=== PATIENT | male | born 1975 | race Caucasian/White ===

== ENCOUNTER 2022-12-25 11:19 | Emergency (ER) | payer BC ==
--- OUTSIDE RECORDS SUMMARY | 2022-12-25 11:29 | XMS REPORT | Continuity of Care Document ---
:[address] [facility] t Address [address] [facility] [address] [place] [address] Care Team Providers Name Role Phone Asked, No Pcp Primary Care Physician Unavailable DR HOLLAND LOPEZ Attending Clinician Unavailable [email or web address] Attending Clinician Unavailable Sandip Damico Attending Clinician Amanda Cramer Attending Clinician Unavailable Rachell Shaikh Attending Clinician Unavailable Sandip Desai Attending Clinician Unavailable Chris Milan Attending Clinician Unavailable Kj Mccurdy Attending Clinician Unavailable Richadr Marcial Attending Clinician Unavailable Holland Lopez Attending Clinician DR HOLLAND LOPEZ Admitting Clinician Unavailable [email or web address]_S Admitting Clinician Unavailable Gregg Summers Admitting Clinician Unavailable Sandip Desai Admitting Clinician Unavailable Chris Milan Admitting Clinician Unavailable Kristopher Marcial Admitting Clinician Unavailable Payers Payer Name Policy Type Policy Number Effective Date Expiration Date Alex Cueva0 [id number] 1958 00:00:00 [place] [id number] 2021 00:00:00 [place] Problems Condition Condition Condition Status Onset Resolution Last Treating Co mments Source Name Details Category Date Date Treatment Clinician Date RC RC Active Diagnosis Active [id number] Memoria 01/03/2017 0 11:09:00 l SMR 08:00: Otis Estrada [facility] RT RT Diagnosis Active 2016-10-02 Mem oria HARDWARE HARDWARE 6-15 16:06:00 l REMOVAL REMOVAL 08:00: Otis Active 00 09/01/2016 [facility] [place] [facility] SPR Diagnosis Active 2016-09-01 Mem oria HARDWARE HARDWARE 6- 11:42:00 l REMOVAL REMOVAL 08:00: Eusebio Active 00 08/30/2016 [facility]str[facility] HARDWARE HARDWARE Diagnosis Active 2016-10-02 Memoria REMOVAL REMOVAL 6-12 16:06:00 l Active 08:00: Eusebio 08/29/2016 00 [facility]strada [facility] Anxiety Anxiety Problem Active 2021-09-04 Me moria (finding) (finding) 04:07:13 l Active Eusebio Problem 09/04/2021 [facility] Benign Benign Problem Active 2021-09-04 Dickson da prostatic prostatic 04:07:13 l hypertroph hypertroph He rmann with with outflow outflow obstructio obstructio n n (disorder) (disorder) Active Problem 09/04/2021 [facility] Family Family Problem Active 2021-09-04 Dickson da history of history of 04:07:13 l prostate prostate Kermit n cancer cancer (context-d (context-d ependent ependent category) category) Active Problem 09/04/2021 [facility] Hyperchole Hyperchol Problem Active 2021-09-04 Memoria sterolemia esterolemi 04:07:13 l (disorder) a Kermit n (disorder) Active Problem 09/04/2021 [facility] Hypertensi Hypertens Problem Active 2021-09-04 Memoria ve katharine 04:07:13 l disorder, disorder, Herm rufina systemic systemic arterial arterial (disorder) (disorder) Active Problem 09/04/2021 [facility] Myocardial Myocardia Problem Active 2021-09-04 Memoria infarction l 04:07:13 l (disorder) infarction He rmann (disorder) Active Problem 09/04/2021 [facility] Nocturia Nocturia Problem Active 2021-09-04 Memoria (finding) (finding) 04:07:13 l Active Eusebio Problem 09/04/2021 [facility] Poor Poor Problem Active 2021-09-04 Memor ia stream of stream of 04:07:13 l urine urine Otis (finding) (finding) Active Problem 09/04/2021 [facility] Post-mictu Post-mict Problem Active 2021-09-04 Memoria rition urition 04:07:13 l incontinen incontinen He rmann ce ce (finding) (finding) Active Problem 09/04/2021 [facility] ADD ADD Problem Active 2018-05-16 Memor ia (attention (attention 03:45:43 l deficit deficit Otis disorder) disorder) without without hyperactiv hyperactiv ity ity Active Problem 05/16/2018 [facility] Primary Primary Problem Active 2018-05-16 Me moria insomnia insomnia 03:45:43 l Active Otis Problem 05/16/2018 [facility] Acute Acute Diagnosis Active 2017-06-15 Mem oria non-recurr non-recurr 02:48:16 l ent ent Eusebio maxillary maxillary sinusitis sinusitis Active Diagnosis 06/15/2017 [facility] M19.012 M19.012 Diagnosis Active 2015-09-27 Memoria Active MH 16:17:00 l [facility] Eusebio Estrada [facility] Allergies, Adverse Reactions, Alerts Allergy Allergy Status Severity Reaction(s) Onset Inactive Treating Comm ents Source Name Type Date Date Clinician naproxen DA Active SV HANDS 2021-0 [facility] BURNING/ITCH 1-13 Donna r Y 00:00: Starks 00 [facility] Penicill DA Active U UNKNOWN [facility] ins 3-19 Clear 00:00: Starks 00 [facility] ibuprofe DA Active U HANDS GET 2020-0 [facility] n ITCHY AND 3-19 Clear BURNING 00:00: Starks 00 [facility] Penicill DA Active U [facility] ins 3-19 Clear 00:00: Starks [facility] ibuprofe DA Active U [facility] n 3-19 Clear 00:00: Starks [facility] Penicill DA Active U 0 [facility] ins 1-16 Clear 00:00: Starks [facility] ibuprofe DA Active U 0 [facility] n 1-16 Clear 00:00: Starks [facility] Penicill DA Active U UNKNOWN [facility] ins 1-16 Clear 00:00: Starks [facility] ibuprofe DA Active U HANDS GET [facility] n ITCHY AND 1-16 Clear BURNING 00:00: Starks [facility] ibuprofe DA Active U [facility] n 9-21 Clear 00:00: Starks [facility] ibuprofe DA Active U HANDS GET [facility] n ITCHY AND 9-21 Clear BURNING 00:00: Starks [facility] Naproxen Naproxen Active shortness of Memoria breath 3-05 l 00:00: Otis 00 Penicill DA Active U [facility] ins 2-17 Clear 00:00: Starks [facility] Penicill DA Active U UNKNOWN [facility] ins 2-17 Clear 00:00: Starks [facility] naproxen naproxen Active Memori a l Otis penicill penicill Active Memori a in in l Otis Penicill DA Active Unknown unknown [facility] Naproxen DA Active Unknown itching and Oa [facility]end [facility] Social History Social Habit Start Date Stop Date Quantity Comments Source Sexual orientation Method [facility] Sex Assigned At [birth year] [facility] 00:00:00 00:00:00 Smoking Status Start Date Stop Date Source Tobacco smoking consumption unknown [facility] Social History 2021-08-11 14:44:12 [facility] Medications Ordered Filled Start Stop Current Ordering Indication Dosage Frequency Signature Comments Components Source Medication Medication Date Date Medication? Clinician (SIG) Name Name tamsulosin Yes 0.4 mg = 1 M emoria 0.4 mg oral 6-15 cap, PO, l capsule 17:09: Daily, # Kermit n 00 90 cap, 3 Refill(s), Pharmacy: [id number], 177.8, cm, 08/11/21 9:56:00 CDT, Height, 86.534, kg, 08/11/21 9:56:00 CDT, Weight tamsulosin 2-0 Yes 0.4 mg = 1 M emoria 0.4 mg oral 6-15 cap, PO, l capsule 17:09: Daily, # Kermit n 00 90 cap, 3 Refill(s), Pharmacy: [id number], 177.8, cm, 08/11/21 9:56:00 CDT, Height, 86.534, kg, 08/11/21 9:56:00 CDT, Weight tamsulosin 2021-0 Yes 0.4 mg = 1 M emoria 0.4 mg oral 6-15 cap, PO, l capsule 17:09: Daily, # Kermit n 00 90 cap, 3 Refill(s), Pharmacy: [id number], 177.8, cm, 08/11/21 9:56:00 CDT, Height, 86.534, kg, 08/11/21 9:56:00 CDT, Weight tamsulosin 2021-0 Yes 0.4 mg = 1 M emoria 0.4 mg oral 6-15 cap, PO, l capsule 17:09: Daily, # Kermit n 00 90 cap, 3 Refill(s), Pharmacy: [id number], 177.8, cm, 08/11/21 9:56:00 CDT, Height, 86.534, kg, 08/11/21 9:56:00 CDT, Weight multivitami 2021-0 Yes Daily, 0 Me moria n 5-25 Refill(s) l 14:40: Otis 00 [place]-3 2-0 Yes 1,000 mg, Memor ia Fish Oil 5-25 PO, Daily, l 14:40: 0 Otis 00 Refill(s) multivitami 2-0 Yes Daily, 0 Me moria n 5-25 Refill(s) l 14:40: Eusebio 00 [place]-3 2-0 Yes 1,000 mg, Memor ia Fish Oil 5-25 PO, Daily, l 14:40: 0 Eusebio 00 Refill(s) multivitami 0 Yes Daily, 0 Me moria n 5-25 Refill(s) l 14:40: Eusebio 00 [place]-3 0 Yes 1,000 mg, Memor ia Fish Oil 5-25 PO, Daily, l 14:40: 0 Otis 00 Refill(s) multivitami 0 Yes Daily, 0 Me moria n 5-25 Refill(s) l 14:40: Eusebio [place]-3 0 Yes 1,000 mg, Memor ia Fish Oil 5-25 PO, Daily, l 14:40: 0 Eusebio 00 Refill(s) Vitamin D3 0 Yes 0 Memoria 5-25 Refill(s) l 14:39: Otis 00 Plavix 0 Yes PO, 0 Memoria 5-25 Refill(s) l 14:39: Eusebio Plavix 75 0 Yes 75 mg = 1 Mem oria mg oral 5-25 tab, PO, l tablet 14:39: Daily, 0 Eusebio 00 Refill(s) oxyCODONE 0 Yes 10 mg = 1 Mem oria 10 mg oral 5-25 tab, PO, l tablet, 14:39: Q6H, 0 Otis immediate 00 Refill(s) release Vitamin D3 0 Yes 0 Memoria 5-25 Refill(s) l 14:39: Otis Plavix 0 Yes PO, 0 Memoria 5-25 Refill(s) l 14:39: Otis Plavix 75 0 Yes 75 mg = 1 Mem oria mg oral 5-25 tab, PO, l tablet 14:39: Daily, 0 Eusebio 00 Refill(s) oxyCODONE 0 Yes 10 mg = 1 Mem oria 10 mg oral 5-25 tab, PO, l tablet, 14:39: Q6H, 0 Otis immediate 00 Refill(s) release Vitamin D3 0 Yes 0 Memoria 5-25 Refill(s) l 14:39: Eusebio 00 Plavix 0 Yes PO, 0 Memoria 5-25 Refill(s) l 14:39: Eusebio 00 Plavix 75 0 Yes 75 mg = 1 Mem oria mg oral 5-25 tab, PO, l tablet 14:39: Daily, 0 Eusebio 00 Refill(s) oxyCODONE 0 Yes 10 mg = 1 Mem oria 10 mg oral 5-25 tab, PO, l tablet, 14:39: Q6H, 0 Eusebio immediate 00 Refill(s) release Plavix 0 Yes PO, 0 Memoria 5-25 Refill(s) l 14:39: Eusebio Plavix 75 0 Yes 75 mg = 1 Mem oria mg oral 5-25 tab, PO, l tablet 14:39: Daily, 0 Otis Refill(s) oxyCODONE Yes 10 mg = 1 Mem oria 10 mg oral 5-25 tab, PO, l tablet, 14:39: Q6H, 0 Eusebio immediate 00 Refill(s) release Vitamin D3 Yes 0 Memoria 5-25 Refill(s) l 14:39: Eusebio 00 aspirin 81 0 Yes 324 mg = 4 M emoria mg oral 5-25 cap, PO, l capsule 14:38: Q4H, 0 Otis Refill(s) aspirin 81 0 Yes 324 mg = 4 M emoria mg oral 5-25 cap, PO, l capsule 14:38: Q4H, 0 Eusebio 00 Refill(s) aspirin 81 0 Yes 324 mg = 4 M emoria mg oral 5-25 cap, PO, l capsule 14:38: Q4H, 0 Otis 00 Refill(s) aspirin 81 0 Yes 324 mg = 4 M emoria mg oral 5-25 cap, PO, l capsule 14:38: Q4H, 0 Eusebio Refill(s) Depo-Testos Yes Adnan 1 ml Memor ia terone 2-15 Kristopher l 00:00: Testosteron Yes Adnan 1 ml Memor ia e Cypionate 2-15 Kristopher l 00:00: Eusebio 00 Depo-Testos Yes Adnan 1 ml Memor ia terone 2-15 Kristopher l 00:00: Testosteron Yes Adnan 1 ml Memor ia e Cypionate 2-15 Kristopher l 00:00: Depo-Testos 2019-0 Yes Adnan 1 ml Memor ia terone 2-15 Kristopher l 00:00: Testosteron 2019-0 Yes Adnan 1 ml Memor ia e Cypionate 2-15 Kristopher l 00:00: Depo-Testos 2019-0 Yes Adnan 1 ml Memor ia terone 2-15 Kristopher l 00:00: Testosteron 2019-0 Yes Adnan 1 ml Memor ia e Cypionate 2-15 Kristopher l 00:00: Ambien 2019-0 Yes Adnan 1 tablet Memori a 2-08 Kristopher at bedtime l 00:00: as needed Ambien 2019-0 Yes Adnan 1 tablet Memori a 2-08 Kristopher at bedtime l 00:00: as needed Ambien 2019-0 Yes Adnan 1 tablet Memori a 2-08 Kristopher at bedtime l 00:00: as needed Ambien 2019-0 Yes Adnan 1 tablet Memori a 2-08 Kristopher at bedtime l 00:00: as needed Adderall 2018-0 Yes Adnan 1 tablet Dickson da 3-29 Kristopher l 02:48: Chantix 2018-0 Yes Adnan 1 tablet Memor ia 3-29 Kristopher l 02:48: Adderall 2018-0 Yes Adnan 1 tablet Dickson da 3-29 Kristopher l 02:48: Chantix 2018-0 Yes Adnan 1 tablet Memor ia 3-29 Kristopher l 02:48: Adderall 2018-0 Yes Adnan 1 tablet Dickson da 3-29 Kristopher l 02:48: Chantix 2018-0 Yes Adnan 1 tablet Memor ia 3-29 Kristopher l 02:48: Adderall 2018-0 Yes Adnan 1 tablet Dickson da 3-29 Krisotpher l 02:48: Chantix 2018-0 Yes Adnan 1 tablet Memor ia 3-29 Kristopher l 02:48: Keflex 2018-0 Yes Adnan 1 capsule Memor ia 3-05 Kristopher l 00:00: Promethazin Yes Adnan 5 ml as Me moria e-DM 3-05 Kristopher needed l 00:00: Keflex Yes Adnan 1 capsule Memor ia 3-05 Kristopher l 00:00: Promethazin Yes Adnan 5 ml as Me moria e-DM 3-05 Kristopher needed l 00:00: Keflex Yes Adnan 1 capsule Memor ia 3-05 Kristopher l 00:00: Promethazin Yes Adnan 5 ml as Me moria e-DM 3-05 Kristopher needed l 00:00: Keflex Yes Adnan 1 capsule Memor ia 3-05 Kristopher l 00:00: Promethazin Yes Adnan 5 ml as Me moria e-DM 3-05 Kristopher needed l 00:00: alprazolam alprazolam No alprazolam [facility] 0.5 mg 0.5 mg 0.5 mg Medical tablet TAKE tablet TAKE tablet 1 TABLET BY 1 TABLET BY TAKE 1 MOUTH TWICE MOUTH TWICE TABLET BY DAILY DAILY MOUTH NEEDED FOR NEEDED FOR TWICE 30 DAYS 30 DAYS DAILY NEEDED FOR 30 DAYS atorvastati atorvastati No atorvastat [facility] n 10 mg n 10 mg in 10 mg Medic al tablet TAKE tablet TAKE tablet 1 TABLET BY 1 TABLET BY TAKE 1 MOUTH ONCE MOUTH ONCE TABLET BY DAILY DAILY MOUTH ONCE DAILY azithromyci azithromyci No azithromyc [facility] n 250 mg n 250 mg in 250 mg Me dical tablet TAKE tablet TAKE tablet 2 TABLETS 2 TABLETS TAKE 2 BY MOUTH ON BY MOUTH ON TABLETS BY DAY 1, AND DAY 1, AND MOUTH ON THEN TAKE 1 THEN TAKE 1 DAY 1, AND TABLET BY TABLET BY THEN TAKE MOUTH ONCE MOUTH ONCE 1 TABLET A DAY ON A DAY ON BY MOUTH DAY 2 DAY 2 ONCE A DAY THROUGH DAY THROUGH DAY ON DAY 2 5 5 THROUGH DAY 5 binaxnow binaxnow No binaxnow Matilde via cov kit cov kit cov kit [facility] BinaxNOW BinaxNOW No BinaxNOW Matilde via COVID-19 Ag COVID-19 Ag COVID-19 Medical Self Test Self Test Ag Self kit Use as kit Use as Test kit Directed on Directed on Use as the Package the Package Directed on the Package chlorhexidi chlorhexidi No chlorhexid [facility] ne ne ine Medical gluconate gluconate gluconate 0.12 % 0.12 % 0.12 % mouthwash mouthwash mouthwash SWISH AND SWISH AND SWISH AND SPIT 15 ML SPIT 15 ML SPIT 15 ML TWICE DAILY TWICE DAILY TWICE FOR MOUTH FOR MOUTH DAILY FOR INJURY INJURY MOUTH UNTIL UNTIL INJURY RESOLVED RESOLVED UNTIL RESOLVED clindamycin clindamycin No clindamyci [facility] HCl 300 mg HCl 300 mg n HCl 300 Medical capsule capsule mg capsule TAKE 1 TAKE 1 TAKE 1 CAPSULE BY CAPSULE BY CAPSULE BY MOUTH EVERY MOUTH EVERY MOUTH 6 HOURS FOR 6 HOURS FOR EVERY 6 OPEN FACIAL OPEN FACIAL HOURS FOR FRACTURES FRACTURES OPEN FACIAL FRACTURES clopidogrel clopidogrel No clopidogre [facility] 75 mg 75 mg l 75 mg Medical tablet TAKE tablet TAKE tablet 1 TABLET BY 1 TABLET BY TAKE 1 MOUTH ONCE MOUTH ONCE TABLET BY DAILY FOR DAILY FOR MOUTH ONCE 90 DAYS 90 DAYS DAILY FOR 90 DAYS dexamethaso dexamethaso No dexamethas [facility] ne 6 mg ne 6 mg one 6 mg Medic al tablet TAKE tablet TAKE tablet 1 TABLET BY 1 TABLET BY TAKE 1 MOUTH TWICE MOUTH TWICE TABLET BY DAILY FOR 3 DAILY FOR 3 MOUTH DAYS AND 1 DAYS AND 1 TWICE ONCE DAILY ONCE DAILY DAILY FOR FOR 4 DAYS FOR 4 DAYS 3 DAYS AND 1 ONCE DAILY FOR 4 DAYS dextroamphe dextroamphe No dextroamph [facility] tamine-amph tamine-amph etamine-am Medical etamine 20 etamine 20 phetamine mg tablet mg tablet 20 mg TAKE 1 TAKE 1 tablet TABLET BY TABLET BY TAKE 1 MOUTH TWICE MOUTH TWICE TABLET BY DAILY DAILY MOUTH TWICE DAILY doxycycline doxycycline No doxycyclin [facility] monohydrate monohydrate e M edical 100 mg 100 mg monohydrat capsule capsule e 100 mg TAKE 1 TAKE 1 capsule CAPSULE BY CAPSULE BY TAKE 1 MOUTH EVERY MOUTH EVERY CAPSULE BY 12 HOURS 12 HOURS MOUTH UNTIL ALL UNTIL ALL EVERY 12 TAKEN TAKEN HOURS UNTIL ALL TAKEN gabapentin gabapentin No gabapentin [facility] 100 mg 100 mg 100 mg Medical capsule capsule capsule TAKE 1 TAKE 1 TAKE 1 CAPSULE BY CAPSULE BY CAPSULE BY MOUTH EVERY MOUTH EVERY MOUTH 8 HOURS FOR 8 HOURS FOR EVERY 8 NERVE PAIN NERVE PAIN HOURS FOR NERVE PAIN gabapentin gabapentin No gabapentin [facility] 400 mg 400 mg 400 mg Medical capsule capsule capsule TAKE 1 TAKE 1 TAKE 1 CAPSULE BY CAPSULE BY CAPSULE BY MOUTH EVERY MOUTH EVERY MOUTH 8 HOURS 8 HOURS EVERY 8 HOURS hydrocodone hydrocodone No hydrocodon [facility] 10 10 e 10 Medical mg-acetamin mg-acetamin mg-acetami ophen 325 ophen 325 nophen 325 mg tablet mg tablet mg tablet TAKE 1 TAKE 1 TAKE 1 TABLET BY TABLET BY TABLET BY MOUTH EVERY MOUTH EVERY MOUTH 6 HOURS 6 HOURS EVERY 6 NEEDED NEEDED HOURS NEEDED levetiracet levetiracet No levetirace [facility] am 500 mg am 500 mg proctor 500 mg Medical tablet TAKE tablet TAKE tablet 1 TABLET BY 1 TABLET BY TAKE 1 MOUTH TWICE MOUTH TWICE TABLET BY DAILY FOR DAILY FOR MOUTH SEIZURE SEIZURE TWICE PROPHYLAXIS PROPHYLAXIS DAILY FOR SEIZURE PROPHYLAXI S methocarbam methocarbam No methocarba [facility] ol 750 mg ol 750 mg mol 750 mg Medical tablet TAKE tablet TAKE tablet 1 TABLET BY 1 TABLET BY TAKE 1 MOUTH EVERY MOUTH EVERY TABLET BY 6 HOURS FOR 6 HOURS FOR MOUTH MUSCLE MUSCLE EVERY 6 PAIN. PAIN. HOURS FOR MUSCLE PAIN. methylpredn methylpredn No methylpred [facility] isolone 4 isolone 4 nisolone 4 Medical mg tablets mg tablets mg tablets in a dose in a dose in a dose pack TAKE pack TAKE pack TAKE BY MOUTH BY MOUTH BY MOUTH DIRECTED ON DIRECTED ON INSIDE OF INSIDE OF DIRECTED PACKAGE PACKAGE ON INSIDE OF PACKAGE morphine ER morphine ER No morphine [facility] 15 mg 15 mg ER 15 mg Medical tablet,exte tablet,exte tablet,ext nded nded ended release release release TAKE 1 TAKE 1 TAKE 1 TABLET BY TABLET BY TABLET BY MOUTH TWICE MOUTH TWICE MOUTH DAILY DAILY TWICE DAILY naproxen naproxen No naproxen Matilde via 500 mg 500 mg 500 mg Medical tablet TK 1 tablet TK 1 tablet TK T PO BID WC T PO BID WC 1 T PO BID WC Narcan 4 Narcan 4 No Narcan 4 Matilde via mg/actuatio mg/actuatio mg/actuati Medical n nasal n nasal on nasal spray spray spray ADMINISTER ADMINISTER ADMINISTER A SINGLE A SINGLE A SINGLE SPRAY SPRAY SPRAY INTRANASALL INTRANASALL INTRANASAL Y INTO ONE Y INTO ONE LY INTO NOSTRIL. NOSTRIL. ONE CALL 911. CALL 911. NOSTRIL. JULY REPEAT JULY REPEAT CALL 911. X 1. X 1. JULY REPEAT X 1. nitroglycer nitroglycer No nitroglyce [facility] in 0.3 mg in 0.3 mg rin 0.3 mg Medical sublingual sublingual sublingual tablet tablet tablet PLACE [address] 1 TABLET TABLET TABLET UNDER THE UNDER THE UNDER THE TONGUE TONGUE TONGUE DIRECTED. DIRECTED. DIRECTED. MAY TAKE 2 MAY TAKE 2 MAY TAKE 2 MORE MORE MORE TABLETS 5 TABLETS 5 TABLETS 5 MINUTES A MINUTES A MINUTES A PART WITHIN PART WITHIN PART 15 MINUTES 15 MINUTES WITHIN 15 MINUTES oxycodone oxycodone No oxycodone [facility] 10 mg 10 mg 10 mg Medical tablet TAKE tablet TAKE tablet 1 TABLET BY 1 TABLET BY TAKE 1 MOUTH EVERY MOUTH EVERY TABLET BY 6 HOURS 6 HOURS MOUTH NEEDED FOR NEEDED FOR EVERY 6 PAIN PAIN HOURS NEEDED FOR PAIN oxycodone-a oxycodone-a No oxycodone- [facility] cetaminophe cetaminophe acetaminop Medical n 10 mg-325 n 10 mg-325 hen 10 mg tablet mg tablet mg-325 mg tablet pantoprazol pantoprazol No pantoprazo [facility] e 40 mg e 40 mg le 40 mg Medic al tablet,lillie tablet,lillie tablet,del yed release yed release ayed TAKE 1 TAKE 1 release TABLET BY TABLET BY TAKE 1 MOUTH TWICE MOUTH TWICE TABLET BY DAILY AT DAILY AT MOUTH 6AM AND AT 6AM AND AT TWICE 6PM 6PM DAILY AT 6AM AND AT 6PM Plenvu 140 Plenvu 140 No Plenvu 140 [facility] gram-9 gram-9 gram-9 Medical gram-5.2 gram-5.2 gram-5.2 gram powder gram powder gram packs TAKE packs TAKE powder DIRECTED DIRECTED packs TAKE DIRECTED tamsulosin tamsulosin No tamsulosin [facility] 0.4 mg 0.4 mg 0.4 mg Medical capsule capsule capsule tizanidine tizanidine No tizanidine [facility] 4 mg tablet 4 mg tablet 4 mg M edical TAKE 1 TAKE 1 tablet TABLET BY TABLET BY TAKE 1 MOUTH THREE MOUTH THREE TABLET BY TIMES DAILY TIMES DAILY MOUTH NEEDED NEEDED THREE TIMES DAILY NEEDED tramadol 50 tramadol 50 No tramadol [facility] mg tablet mg tablet 50 mg Medi yoni TAKE 1 TAKE 1 tablet TABLET BY TABLET BY TAKE 1 MOUTH EVERY MOUTH EVERY TABLET BY 6 HOURS 6 HOURS MOUTH NEEDED FOR NEEDED FOR EVERY 6 ACUTE PAIN ACUTE PAIN HOURS NEEDED FOR ACUTE PAIN zolpidem 10 zolpidem 10 No zolpidem [facility] mg tablet mg tablet 10 mg Medi yoni TAKE 1 TAKE 1 tablet TABLET BY TABLET BY TAKE 1 MOUTH ONCE MOUTH ONCE TABLET BY DAILY AT DAILY AT MOUTH ONCE BEDTIME BEDTIME DAILY AT NEEDED AT NEEDED AT BEDTIME NIGHT FOR NIGHT FOR NEEDED AT 30 DAYS 30 DAYS NIGHT FOR 30 DAYS albuterol albuterol No albuterol [facility] sulfate HFA sulfate HFA sulfate Medical 90 90 HFA 90 mcg/actuati mcg/actuati mcg/actuat on aerosol on aerosol ion inhaler inhaler aerosol INHALE 2 INHALE 2 inhaler PUFFS BY PUFFS BY INHALE 2 MOUTH EVERY MOUTH EVERY PUFFS BY 4 HOURS 4 HOURS MOUTH NEEDED FOR NEEDED FOR EVERY 4 DYSPNEA AND DYSPNEA AND HOURS WHEEZING WHEEZING NEEDED FOR DYSPNEA AND WHEEZING Vital Signs Vital Name Observation Time Observation Value Comments Source Height 2022-08-29 09:21:00 177.8 CM Weight 2022-08-29 09:21:00 86.2 KG Height 2022-08-26 09:50:00 177.8 CM Weight 2022-08-26 09:50:00 86.2 KG Height 2022-07-13 07:22:00 177.8 CM Weight 2022-07-13 07:22:00 86.18 KG Height 2022-07-07 12:27:00 177.8 CM Weight 2022-07-07 12:27:00 86.18 KG Height 2021-08-11 14:56:00 177.8 cm [facility] Weight 2021-08-11 14:56:00 [facility] BMI Calculated 2021-08-11 14:56:00 Fernando Nuñez Weight 2017-05-22 19:00:00 [facility] 2017-05-22 19:00:[facility] Temperature Oral (F) 2017-05-22 19:00:00 98.5 F [facility] Heart Rate 2017-05-22 19:00:00 Denilson Kaplan Diastolic (mm Hg) 2017-05-22 19:00:00 Carmen Kaplan Systolic (mm Hg) 2017-05-22 19:00:00 Dickson Kaplan Procedures Procedure Date / Time Performing Clinician Source Performed EXCISION RT SHOULDER JNT 2022-08-29 00:00:00 [facility] PERQ ENDO Center RELEASE RT SHOULDER JOINT 2022-08-29 00:00:00 [facility] PER[facility] ENDO Center RELEASE MEDIAN NERVE PERQ 2022-07-13 00:00:00 [facility] ENDO APPR Center Cystourethroscopy (separate 2021-09-01 17:08:00 [facility] procedure) Complex uroflowmetry (eg, 2021-08-18 14:49:00 [facility] calibrated electronic equipment) Measurement of post-voiding 2021-08-18 14:49:00 [facility] residual urine and/or bladder capacity by ultrasound, non-imaging [id number] 2021-06-21 00:00:00 MOUDA.Gerri [facility] [id number] 2021-06-13 00:00:00 TERRY [facility] [id number] 2021-06-13 00:00:00 TERRY [facility] [id number] 2020-06-05 00:00:00 MILAN [facility] [id number] 2020-06-05 00:00:00 MILAN [facility] [id number] 2020-06-05 00:00:00 MILAN [facility] Plan of Care Planned Activity Planned Date Details Comments Source Future Scheduled 2022-12-25 Screening [facility] Test 11:24:28 malignant neoplasm of colon (procedure) [code = 802738141] Future Scheduled 2022-12-25 [facility]FLUENZA VACCINE [facility] 11:24:28 (#1) [code = INFLUENZA VACCINE (#1)] Future Scheduled 2022-12-25 Screening for [facility] Test 11:24:28 malignant neoplasm of colon (procedure) [code = [id number]] Future Scheduled 2022-12-25 Screening for [facility] Test 11:24:28 malignant neoplasm of colon (procedure) [code = 140530151] Future Scheduled 2022-12-25 [facility]ening for [facility] Test 11:24:28 malignant neoplasm of colon (procedure) [code = [id number]] Future Scheduled 2022-12-25 COVID-19 VACCINE (#1) [facility] Test 11:24:28 [code = COVID-19 VACCINE (#1)] Future Scheduled 2022-12-25 Screening for [facility] Test 11:24:28 malignant neoplasm of colon (procedure) [code = [id number]] Future Scheduled 2022-06-18 COVID-19 VACCINE (#1) [facility] Test 03:53:40 [code = COVID-19 VACCINE (#1)] Future Scheduled 2022-06-18 COLONOSCOPY SCREENING [facility] Test 03:53:40 [code = COLONOSCOPY SCREENING] Future Scheduled 2022-06-18 INFLUENZA VACCINE Method [facility] Test 03:53:40 [code = INFLUENZA VACCINE] Future Scheduled 2022-03-04 COVID-19 VACCINE (#1) [facility] Test 21:07:23 [code = COVID-19 VACCINE (#1)] Future Scheduled 2022-03-04 COLONOSCOPY SCREENING [facility] Test 21:07:23 [code = COLONOSCOPY SCREENING] Future Scheduled 2022-03-04 INFLUENZA VACCINE Method [facility] Test 21:07:23 [code = INFLUENZA VACCINE] Encounters Start End Encounter Admission Attending Care Care Encounter Source Date/Time Date/Time Type Type Clinicians Facility Department ID 2022-08-29 2022-08-29 Out[place]OPEZ[place] [facility] [place] [id number] [place] 08:51:00 14:30:00 [facility] 2022-07-13 2022-07-13 Outpatient C JOHN, [facility] [place] [id number] [place] 06:52:00 10:03:00 [facility] Med[facility] l [facility] 2022-05-18 2022-05-18 Outpatient GC_TNC_Lovi PRIV PRIV [id number] [facility] 00:00:00 00:00:00 tt_S [id number] Medica l 2022-05-18 2022-05-18 Jaden Harris [facility] [id number] [facility] 00:00:00 00:00:00 Aarti Anderson MD: [id number] GC_TNC_Sout [facility], Office* [address], [place] [address] , Ph. 2022-05-17 2022-05-17 Outpatient GC_TNC_Lovi PRIV PRIV 110 [id number] [facility] 00:00:00 00:00:00 tt_S [id number] Medica l 2022 2022 Outpatient GC_TNC_Lovi PRIV PRIV 110 [id number] [facility] 00:00:00 00:00:00 tt_S [id number] Medica l 2021-09-01 2021-09-02 [place] [id number] [facility] 16:15:00 04:59:59 r Urology 03 l [facility] 2021-09-01 2021-09-02 [place] [id number] [facility] 16:15:00 04:59:59 r Urology 02 l [facility] 2021-09-01 2021-09-02 [place] [id number] [facility] 16:15:00 04:59:59 r Urology 03 l [facility] 2021-09-01 2021-09-02 [place] [id number] [facility] 16:15:00 04:59:59 r Urology 02 l [facility] 2021-09-01 2021-09-01 Outpatient Hoggatt, MHMG MG [id number] 11:15:00 23:59:59 Sandip 03 Roger 2021-09-01 2021-09-01 Outpatient Hoggatt, MHMG MHMG [id number] 11:15:00 23:59:59 Sandip 02 Roger 2021-09-01 2021-09-01 Outpatient MHIE MHIE [id number] [facility] 11:15:00 11:15:00 02 ira Kaplan 2021-09-01 2021-09-01 Outpatient MHIE MHIE [id number] [facility] 11:15:00 11:15:00 03 ira Otis 2021-08-18 2021-08-19 [place] [id number] [facility] 15:00:00 04:59:59 r Urology 01 l [facility] 2021-08-18 2021-08-19 [place] [id number] [facility] 15:00:00 04:59:59 r Urology 01 l [facility] 2021-08-18 2021-08-18 Outpatient Hoggatt, MHMG MG [id number] 10:00:00 23:59:59 Sandip 01 Roger 2021-08-18 2021-08-18 Outpatient MHIE MHIE [id number] [facility] 10:00:00 10:00:00 01 ira Kaplan 2021-08-11 2021-08-12 Outpatient nullFlavo MHMG [id number] [facility] 15:00:00 04:59:59 r Urology 00 l [facility] 2021-08-11 2021-08-12 [place] [id number] [facility] 15:00:00 04:59:59 r Urology 00 l [facility] 2021-08-11 2021-08-11 Outpatient Linnettegatt, MHMG MG [id number] 10:00:00 23:59:59 Sandip 00 Roger 2021-08-11 2021-08-11 [facility]patient [facility] [id number] [id number] [facility] 10:54:00 10:54:00 29 [facility] 2021-08-11 2021-08-11 Outpatient MHIE MHIE [id number] [facility] 10:00:00 10:00:00 00 ira Kaplan 2021-08-06 2021-08-06 Outpatient AROLDO Shaikh, BALTACL RMRI [id number] [facility] 11:47:00 11:47:00 Rachell 10 [facility] 2021-06-15 2021-06-22 Inpatient EM Giselle[facility] MED[facility].01 G001 [id number] [facility] 19:01:00 16:33:00 Sandip 81 [facility] 2021-06-12 2021-06-14 Inpatient TR Milan, BALTACL INTE [id number] [facility] 04:19:00 15:33:00 Chris 47 [facility] 2021-05-19 2021-05-19 Emergency EM Kaz, BALTACL LAKIA [id number] [facility] 13:50:00 16:14:00 Kj 58 [facility] 2021-04-02 2021-04-02 Inpatient EL Aniket, Richard HCACL OUTD [id number] [facility] 07:04:00 07:04:00 82 [facility] 2020-06-26 2020-06-19 Inpatient Amanda Norman [facility] G001 [id number] [facility] 14:00:00 16:00:00 81 [facility] 2020-06-05 2020-06-05 Inpatient HCACL HCACL [id number] [facility] 15:12:23 15:12:23 97 [facility] 2020-06-05 2020-06-05 Inpatient Ali, Richard HCACL HCACL [id number] [facility] 12:05:32 12:05:32 96 [facility] 2019-09-10 2019-09-10 [address] [facility] [id number] [facility] 16:30:00 16:30:00 65 [facility] 2019-04-04 2019-05-14 Inpatient HCACL LAKIA [id number] [facility] 14:22:00 21:29:35 95 [facility] 2018-05-15 2018-05-15 Outpatient [facility] [id number] eClinic 10:55:00 10:55:00 MEDICAL MEDICAL alWork s GROUP PA GROUP PA 2018-05-15 2018-05-15 Outpatient [facility] [id number] eClinic 09:00:00 09:00:00 MEDICAL MEDICAL alWork s GROUP PA GROUP PA 2018-05-04 2018-05-04 Outpatient [facility] [id number] eClinic 14:14:00 14:14:00 MEDICAL MEDICAL alWork s GROUP PA GROUP PA 2017-05-22 2017-05-22 Outpatient [facility] [id number] eClinic 14:00:00 14:00:00 [facility]ICAL 2017-01-20 2017-02-19 OP Therapy nullFlavo SMR Estrada 3 [id number] [facility] 16:09:00 05:59:00 [facility] 04 [facility] Otis 2017-01-20 2017-02-19 OP Therapy nullFlavo SMR Estrada 3 [id number] [facility] 16:09:00 05:59:00 [facility] 04 l Otis 2017-01-20 2017-02-18 Outpatient John, [id number]. [id number] 11:09:00 23:59:00 Holland E [id number] 5.43 2016-09-01 2016-10-01 OP Therapy nullFlavo [facility] Estrada 3 [id number] Memoria 16:27:00 04:59:00 [facility] 02 l Eusebio 2016-09-01 2016-10-01 OP Therapy nullFlavo [facility] Estrada 3 [id number] Memoria 16:27:00 04:59:00 [facility] 02 l Eusebio 2016-09-01 2016-09-30 Outpatient Budoff, 2.16.840. [id number]. [id number] 11:27:00 23:59:00 Holland Joe [id number] 5.43 Results Test Description Test Time Test Comments Results Result Comments Source URINE AND STOOL 2021-08-11 15:02:00 Test Item Value Reference Range Interpretation Comme nts POC UA Color (test code = POC UA Color) Yellow *NA*(08/11/21 10:02 A M[facility] [id number] 15:02:00 Test Item Value Reference Range Interpretation Comments POC UA Turbidity (test Clear *NA*(08/11/21 code = POC UA Turbidity) 10:02 AM) [facility] [id number] 15:02:00 Test Item Value Reference Range Interpretation Comments POC UA SG (test code = POC UA SG) 1.015 1 [facility] [id number] 15:02:00 Test Item Value Reference Range Interpretation Comments POC UA pH (test code = POC UA pH) 5.5 1 5.0-8.0 [facility] [id number] 15:02:00 Test Item Value Reference Range Interpretation Comments POC UA Prot (test code = POC Negative mg/dL UA Prot) [facility] [id number] 15:02:00 Test Item Value Reference Range Interpretation Comments POC UA Glu (test code = POC UA Negative mg/dL Glu) [facility] [id number] 15:02:00 Test Item Value Reference Range Interpretation Comments POC UA Ket (test code = POC UA Negative mg/dL Ket) [facility] [id number] 15:02:00 Test Item Value Reference Range Interpretation Comments POC UA Bili (test Negative *NA*(08/11/21 code = POC UA Bili) 10:02 AM) [facility] [id number] 15:02:00 Test Item Value Reference Range Interpretation Comments POC UA Bld (test code Negative *NA*(08/11/21 = POC UA Bld) 10:02 AM) [facility] [id number] 15:02:00 Test Item Value Reference Range Interpretation Comments POC UA Uro (test code = POC UA Uro) 0.2 0.1-1.0 [facility] [id number] 15:02:00 Test Item Value Reference Range Interpretation Comments POC UA Nit (test code Negative *NA*(08/11/21 = POC UA Nit) 10:02 AM) [facility] [id number] 15:02:00 Test Item Value Reference Range Interpretation Comments POC UA LeukEst (test Negative *NA*(08/11/21 code = POC UA LeukEst) 10:02 AM) [facility] [id number] 15:02:00 Test Item Value Reference Range Interpretation Comments POC UA Color (test Yellow *NA*(08/11/21 code = POC UA Color) 10:02 AM) [facility] [id number] 15:02:00 Test Item Value Reference Range Interpretation Comments POC UA Turbidity (test Clear *NA*(08/11/21 code = POC UA Turbidity) 10:02 AM) [facility] [id number] 15:02:00 Test Item Value Reference Range Interpretation Comments POC UA SG (test code = POC UA SG) 1.015 1 [facility] [id number] 15:02:00 Test Item Value Reference Range Interpretation Comments POC UA pH (test code = POC UA pH) 5.5 1 5.0-8.0 [facility] [id number] 15:02:00 Test Item Value Reference Range Interpretation Comments POC UA Prot (test code = POC Negative mg/dL UA Prot) [facility] [id number] 15:02:00 Test Item Value Reference Range Interpretation Comments POC UA Glu (test code = POC UA Negative mg/dL Glu) [facility] [id number] 15:02:00 Test Item Value Reference Range Interpretation Comments POC UA Ket (test code = POC UA Negative mg/dL Ket) [facility] [id number] 15:02:00 Test Item Value Reference Range Interpretation Comments POC UA Bili (test Negative *NA*(08/11/21 code = POC UA Bili) 10:02 AM) [facility] [id number] 15:02:00 Test Item Value Reference Range Interpretation Comments POC UA Bld (test code Negative *NA*(08/11/21 = POC UA Bld) 10:02 AM) [facility] [id number] 15:02:00 Test Item Value Reference Range Interpretation Comments POC UA Uro (test code = POC UA Uro) 0.2 0.1-1.0 [facility] [id number] 15:02:00 Test Item Value Reference Range Interpretation Comments POC UA Nit (test code Negative *NA*(08/11/21 = POC UA Nit) 10:02 AM) [facility] [id number] 15:02:00 Test Item Value Reference Range Interpretation Comments POC UA LeukEst (test Negative *NA*(08/11/21 code = POC UA LeukEst) 10:02 AM) [facility] [id number] 15:02:00 Test Item Value Reference Range Interpretation Comments POC UA Color (test Yellow *NA*(08/11/21 code = POC UA Color) 10:02 AM) [facility] [id number] 15:02:00 Test Item Value Reference Range Interpretation Comments POC UA Turbidity (test Clear *NA*(08/11/21 code = POC UA Turbidity) 10:02 AM) [facility] [id number] 15:02:00 Test Item Value Reference Range Interpretation Comments POC UA SG (test code = POC UA SG) 1.015 1 [facility] [id number] 15:02:00 Test Item Value Reference Range Interpretation Comments POC UA pH (test code = POC UA pH) 5.5 1 5.0-8.0 [facility] [id number] 15:02:00 Test Item Value Reference Range Interpretation Comments POC UA Prot (test code = POC Negative mg/dL UA Prot) [facility] [id number] 15:02:00 Test Item Value Reference Range Interpretation Comments POC UA Glu (test code = POC UA Negative mg/dL Glu) [facility] [id number] 15:02:00 Test Item Value Reference Range Interpretation Comments POC UA Ket (test code = POC UA Negative mg/dL Ket) [facility] [id number] 15:02:00 Test Item Value Reference Range Interpretation Comments POC UA Bili (test Negative *NA*(08/11/21 code = POC UA Bili) 10:02 AM) [facility] [id number] 15:02:00 Test Item Value Reference Range Interpretation Comments POC UA Bld (test code Negative *NA*(08/11/21 = POC UA Bld) 10:02 AM) [facility] [id number] 15:02:00 Test Item Value Reference Range Interpretation Comments POC UA Uro (test code = POC UA Uro) 0.2 0.1-1.0 [facility] [id number] 15:02:00 Test Item Value Reference Range Interpretation Comments POC UA Nit (test code Negative *NA*(08/11/21 = POC UA Nit) 10:02 AM) [facility] [id number] 15:02:00 Test Item Value Reference Range Interpretation Comments POC UA LeukEst (test Negative *NA*(08/11/21 code = POC UA LeukEst) 10:02 AM) [facility] [id number] 15:02:00 Test Item Value Reference Range Interpretation Comments POC UA Color (test Yellow *NA*(08/11/21 code = POC UA Color) 10:02 AM) [facility] [id number] 15:02:00 Test Item Value Reference Range Interpretation Comments POC UA Turbidity (test Clear *NA*(08/11/21 code = POC UA Turbidity) 10:02 AM) [facility] [id number] 15:02:00 Test Item Value Reference Range Interpretation Comments POC UA SG (test code = POC UA SG) 1.015 1 [facility] [id number] 15:02:00 Test Item Value Reference Range Interpretation Comments POC UA pH (test code = POC UA pH) 5.5 1 5.0-8.0 [facility] [id number] 15:02:00 Test Item Value Reference Range Interpretation Comments POC UA Prot (test code = POC Negative mg/dL UA Prot) [facility] [id number] 15:02:00 Test Item Value Reference Range Interpretation Comments POC UA Glu (test code = POC UA Negative mg/dL Glu) [facility] [id number] 15:02:00 Test Item Value Reference Range Interpretation Comments POC UA Ket (test code = POC UA Negative mg/dL Ket) [facility] [id number] 15:02:00 Test Item Value Reference Range Interpretation Comments POC UA Bili (test Negative *NA*(08/11/21 code = POC UA Bili) 10:02 AM) [facility] [id number] 15:02:00 Test Item Value Reference Range Interpretation Comments POC UA Bld (test code Negative *NA*(08/11/21 = POC UA Bld) 10:02 AM) [facility] [id number] 15:02:00 Test Item Value Reference Range Interpretation Comments POC UA Uro (test code = POC UA Uro) 0.2 0.1-1.0 [facility] [id number] 15:02:00 Test Item Value Reference Range Interpretation Comments POC UA Nit (test code Negative *NA*(08/11/21 = POC UA Nit) 10:02 AM) [facility] [id number] 15:02:00 Test Item Value Reference Range Interpretation Comments POC UA LeukEst (test Negative *NA*(08/11/21 code = POC UA LeukEst) 10:02 AM) [facility] Eusebio- XR CHEST 2 [id number] 00:00:00 [facility] 1975 Sex: M FAX: Mildred CramerAmanda [phone] [place]: St: REG FAX: Gregg Chavez [phone] Name: FERNANDO DAMON [facility] : 1975 Age/S: 46/M [address] [place] [address] Unit #: [id number] Loc: [place] [address] Phys: Maj Belaper Acct: [id number] Dis Date: Status: REG CLI PHONE #: [phone] ExamDate: 08/11/2021 1130 FAX #: [phone] Reason: R07.9, CHEST PAIN, UNSPECIFIED. EXAMS: CPT CODE: [id number] XR CHEST 2 V 12658 PROCEDURE INFORMATION: Exam: XR Chest Exam date and time: 08/11/2021 11:12 AM Age: 46 years old Clinical indication: Chest pain, unspecified; Additional info: R07.9, chest pain, unspecified. TECHNIQUE: Imaging protocol: XR of the chest. Views: 2 views. PA and Lateral COMPARISON: CR XR CHEST 1V 06/13/2021 5:28 AM FINDINGS: Lungs: There are normal lung volumes without consolidation or interstitial opacities. Pleural spaces: Unremarkable. No pleural effusion. No pneumothorax. H eart/Mediastinum: The heart size is normal. The pulmonary vasculature is normal. The mediastinal contour is normal. The trachea is midline. Bones/joints: An orthopedic contact plate and screws transfixthe left clavicle. IMPRESSION: No acute cardiopulmonary findings. at 1142 Reported and signed by: Clarke Mercado M.D. CC: Amanda Cramer; Gregg Summers MD Technologist: RT Anisa(R) Trnscrd Date/Time/By: 08/11/2021 (1142) : By: KirillO Orig Print D/T: S: 08/11/2021 (6519) PAGE 1 Signed Report- MRI BRAIN W/O CONT 2021-08-06 00:00:00 [facility] NOHEMI : 1975 Sex: M FAX: Rachell Alvarado DO [phone] [place]: St: REG FAX: Gregg Chavez [phone] ---- Name: DAMONFERNANDO ROSA [facility] : 1975 Age/S: 46/M [address] [place] [address] Unit #: [id number] Loc: [place] [address] Phys: Rachell Shaikh DO Acct: [id number] Dis Date: Status: REG CLI PHONE #: [phone] Exam Date: 08/06/2021 1214 FAX #: [phone] Reason: R51.9, HEADACHE, UNSPECIFIED. EXAMS: CPTCODE: [id number] MRI BRAIN W/O CONT 48736 PROCEDURE INFORMATION: Exam: MR Head Without Contrast Examdate and time: 08/06/2021 12:10 PM Age: 46 years old Clinical indication: Other: R51.9, headache, unspecified. TECHNIQUE: Imaging protocol: MR of the head without contrast. COMPARISON: CT HEAD/BRAIN W/OCONT 06/20/2021 3:14 PM FINDINGS: Brain: There is no acute cortical infarct, parenchymal hemorrhage lenin intra-axial mass. Sellar and parasellar structures are normal. There is no cerebellar tonsillar ectopia. Flow is seen in the 4th segments of both vertebral arteries, the basilar artery and intracran ial carotid arteries. The cochlear, vestibule and 7th and 8th nerve fascicles are normal. Cerebral ventricles: Normal. No ventriculomegaly. Bones/joints: Unremarkable. Paranasal sinuses: Normal as visualized. No acute sinusitis. Mastoid air cells: Normal as visualized. No mastoid effusion. Orbital cavities: Unremarkable. Soft tissues: Unremarkable. IMPRESSION: There is no acute cortical infarct, parenchymal hemorrhage or an intra-axial mass. Electronically Signed by Hugo Rust on08/06/2021 at 1346 Reported and signed by: Jose Luis Rust M.D. CC: Rachell Summers MD Technologist: RT Kerri(R)(CT)(MR) Trnscrd Date/Time/By: 08/06/2021 (1526) : By: [email or web address] Orig Print D/T: S: 08/06/2021 (4146) PAGE 1 Signed ReportBASI METABOLIC [id number] 07:54:00 Test Item Value Reference Range Interpretation Comments SODIUM (test code = NA) 139 mEq/L 134-147 N POTASSIUM (test code = 3.7 mEq/L 3.4-5.0 N K) CHLORIDE (test code = 105 mEq/L 100-108 N CL) CARBON DIOXIDE (test 25 mEq/l 21-33 N code = CO2) ANION GAP (test code = 13 0-20 N GAP) GLUCOSE (test code = 116 mg/dL 70-110 H GLU) BLOOD UREA NITROGEN 15 mg/dL 7-18 N (test code = BUN) GLOMERULAR FILTRATION 80.8 95-105 L Units of measure = RATE (test code = GFR) ml/mi n/1.73 m2 CREATININE (test code = 1.0 mg/dL 0.6-1.3 N CREAT) CALCIUM (test code = 9.4 mg/dL 8.0-10.5 N CA) HEPATIC FUNCTION [id number] 07:54:00 Test Item Value Reference Range Interpretation Comments TOTAL PROTEIN (test code = PROT) 6.7 g/dL 6.4-8.2 N ALBUMIN (test code = ALB) 3.70 g/dL 3.4-5.0 N BILIRUBIN TOTAL (test code = BILT) 0.70 mg/dL 0.0-1.0 N BILIRUBIN DIRECT (test code = 0.20 MG/DL 0.0-0.30 N BILD) BILIRUBIN INDIRECT (test code = 0.50 MG/DL BILIND) SGOT/AST (test code = AST) 21 IUnit/L 15-37 N SGPT/ALT (test code = ALT) 19 IUnit/L 30-65 L ALKALINE PHOSPHATASE TOTAL (test 87 IUnit/L 20-125 N code = ALKP) CBC W/AUTO [id number] 06:58:00 Test Item Value Reference Range Interpretation Comments WHITE BLOOD CELL (test code = 8.9 x10 3/uL 4.5-11.0 WBC) RED BLOOD CELL (test code = 3.69 x10 6/uL 4.00-5.60 L RBC) HEMOGLOBIN (test code = HGB) 11.6 g/dL 12.5-16.9 L HEMATOCRIT (test code = HCT) 35.8 % 37.5-50.7 L MEAN CELL VOLUME (test code = 97.0 fL 81.0-99.0 N MCV) MEAN CELL HGB (test code = MCH) 31.4 pg 27.0-33.0 N MEAN CELL HGB CONCETRATION 32.4 g/dL 33.0-37.0 L (test code = MCHC) RED CELL DISTRIBUTION WIDTH CV 13.8 % 11.5-14.5 N (test code = RDW) RED CELL DISTRIBUTION WIDTH SD 48.7 fL 37.0-54.0 N (test code = RDW-SD) PLATELET COUNT (test code = 346 x10 3/uL 150-400 N PLT) MEAN PLATELET VOLUME (test code 9.6 fL 7.0-9.0 H = MPV) NEUTROPHIL % (test code = NT%) 75.6 % 56.0-77.0 N IMMATURE GRANULOCYTE % (test 0.6 % 0.0-2.0 N code = IG%) LYMPHOCYTE % (test code = LY%) 15.4 % 14.0-32.0 N MONOCYTE % (test code = MO%) 8.3 % 4.8-9.0 N EOSINOPHIL % (test code = EO%) 0.0 % 0.3-3.7 L BASOPHIL % (test code = BA%) 0.1 % 0.0-2.0 N NUCLEATED RBC % (test code = 0.0 % 0-0 N NRBC%) NEUTROPHIL # (test code = NT#) 6.70 x10 3/uL 2.0-7.6 N IMMATURE GRANULOCYTE # (test 0.05 x10 3/uL 0.00-0.03 H code = IG#) LYMPHOCYTE # (test code = LY#) 1.37 x10 3/uL 1.0-3.8 N MONOCYTE # (test code = MO#) 0.74 x10 3/uL 0.1-0.8 N EOSINOPHIL # (test code = EO#) 0.00 x10 3/uL 0.0-0.2 N BASOPHIL # (test code = BA#) 0.01 x10 3/uL 0.0-0.2 N NUCLEATED RBC # (test code = 0.00 x10 3/uL 0.0-0.1 N NRBC#) MANUAL DIFF REQUIRED (test code NO = MDIFF) THROMBOPLASTIN TIME [id number] 10:06:00 Test Item Value Reference Range Interpretation Comments THROMBOPLASTIN TIME 37.4 Seconds 25.0-39.5 N Therape utic Range: PARTIAL (test code = 50.4 - 88.3 Seconds PTT) Effective 07/03/2018 COVID 19 Asymptomatic IH [id number] 05:14:00 Test Item Value Reference Range Interpretation Comments COVID 19 Asymptomatic Negative Negative A nega tive result is AG (test code = presumpti ve and should COVNONPUIAG) be confirmedwit h an FDA authorized mole cular assay, if neces gisell forpatient ricardo gement.A positive result does not rule out co-inf ections withother patho gens.This test detects brown th viable (live) and non-viable,SARS -CoV, and SARS-CoV-2. Rosa t performance dep ends on theamount of vi yoselin (antigen) in th e sample.This roas t has not been FDA cleare d or approved; the t est hasbeen authori zed by FDA under an Em ergency Use Authorizati on(EUA) for use by labo ratories certified under the CLIA thatmeet the requirements to perform moderate, high or waivedcomplexit y tests. - XR FLUOROSCOPY 0-60 [id number] 00:00:00 [facility] SONG : 1975 Sex: M FAX: Sandip Handy [phone] [place]: St: ADM Name: FERNANDO DAMON [facility] : 1975 Age/S: 46/M [address] [place] [address] Blvd Unit #: [id number] Loc: [address] [place] [address] Phys: Sandip Desai MD Acct: [id number] Dis Date: Status: ADM IN PHONE #: [phone] Exam Date: 06/21/2021 1228 FAX #: [phone] Reason: RIGHT ANKLE FRACTURE EXAMS: CPT CODE: [id number] XR FLUOROSCOPY 0-60 MIN 72632 PROCEDURE INFORMATION: Exam: FL Fluoroscopy, Up to 1 Hour Physician Time; Radiologist Not Present For Fluoroscopy Exam date and time: 06/21/2021 12:10 PM Age: 46 years old Clinical indication: Screening exam; Additional info: Right ankle fracture; () TECHNIQUE: Imaging protocol: Fluoroscopy , upto 1 hour physician or other qualified health healthcare project manager time. This radiologist did not supervise this procedure. Exam supervised by facility personnel. Report for radiation dosage reporting and documentation only. COMPARISON: No relevant prior studies available. RADIATION DOSE METRICS: Fluoroscopy time (seconds): seconds= 15.8 SECONDS Number of fluoro spot images: images= 3 Reference air kerma (JULIA): 0.63 mGy FINDINGS: Procedural imaging: Plate fixation lateral malleolus and small plate medial malleolus. Notes: Fluoroscopy supervised by facility personnel. See also separate procedure report . IMPRESSION: Fluoroscopy dosage documentation. See also separate procedure notes. at 6286 Reported and signed by: Ramu Iqbal M.D. CC: Gene NUNO Technologist: RT Alejandra(R) Trnscrd Date/Time/By: 06/21/2021 (5832) : By: [email or web address] Orig Print D/T: S: 06/21/2021 (0864) PAGE 1 Signed ReportBASIC METABOLIC PANEL 2021-06-20 07:57:00 Test Item Value Reference Range Interpretation Comments SODIUM (test code = NA) 142 mEq/L 134-147 N POTASSIUM (test code = 3.7 mEq/L 3.4-5.0 N K) CHLORIDE (test code = 107 mEq/L 100-108 N CL) CARBON DIOXIDE (test 25 mEq/l 21-33 N code = CO2) ANION GAP (test code = 14 0-20 N GAP) GLUCOSE (test code = 113 mg/dL 70-110 H GLU) BLOOD UREA NITROGEN 14 mg/dL 7-18 N (test code = BUN) GLOMERULAR FILTRATION 91.3 95-105 L Units of measure = RATE (test code = GFR) ml/mi n/1.73 m2 CREATININE (test code = 0.9 mg/dL 0.6-1.3 N CREAT) CALCIUM (test code = 9.2 mg/dL 8.0-10.5 N CA) - CT MAXIFAC W/O [id number] 00:00:00 [facility] : 1975 Sex: M Name: FERNANDO DAMON [facility] : 1975 Age/S: 46 / M [address] [place] [address] Unit #: [id number] Loc: [place] [address] Phys: Mónica Hugo MD Acct: [id number] Dis Date: Status: ADM IN PHONE #: [phone] Exam Date: 06/20/2021 1521 FAX #: [phone] Reason: headache EXAMS: CPT CODE: [id number] CT MAXIFAC W/O CONTRAST [id number] PROCEDURE INFORMATION: Exam: CT Maxillofacial Without Contrast Exam date and time: 06/20/2021 3:14 PM Age: 46 years old Clinical indication: Face pain; Additional info: Headache TECHNIQUE: Imaging protocol: Computed tomography images of the face without contrast. Radiation optimization: All CT scans at this facility use at least one of these dose optimization techniques: automated exposure control; mA and/or kV adjustment per patient size (includes targeted exams where dose is matched to clinical indication); or iterative reconstruction. COMPARISON: CT MAXIFAC W/O CONTRAST 06/16/2021 9:13 AM FINDINGS: Orbital cavities: Orbits are normal. Globes are unremarkable. Bones/joints: Identified again is a nondisplaced fracture through the roof of the right orbit. Identified again is a fracture in the floor of the right orbit extending along the right anterior posterolateral maxillary sinus wall. Identified again is a non displaced fracture of the medial wall of the right orbit. Identified again is a fracture in the right fovea ethmoidalis and adjacent cribriform plate. Previously described fracture in the left superomedial orbital wall is not as well visualized in this study. There is continued, hemorrhagic partial opacification of the right maxillary sinus which has improved since the previous study. A depressed fracture of the tip of the nose is identified again. Paranasal sinuses: Partial opacification with hemorrhage in the right maxillary sinus improved since the previous study. The remainder of the paranasal sinuses are well aerated. Soft tissues: Unremarkable. IMPRESSION: Previously described fracture in the left superomedial orbital wall isnot as well visualized in this study. Otherwise, no significant change in previously described multiple facial bone fractures. These findings were discussed by telephone with Dr. Hugo June 20, 2021 at 4:27 p.m.. at 1630 Reportedand signed by: Guero Yeboah M.D. PAGE 1 Signed Report (CONTINUED) Name: FERNANDO DAMON [facility] : 1975 Age/S: 46 / M [address] [place] [address] Unit #: [id number] Loc: [place] [address] Phys: Mónica Hugo MD Acct: [id number] Dis Date: Status: ADM IN PHONE #: [phone] Exam Date: 06/20/2021 1527 FAX #: [phone] Reason: headache EXAMS: CPT CODE: [id number] CT MAXIFAC W/OCONTRAST 81351 (Continued) CC: Mónica Hugo MD; Sandip Desai MD Technologist:RT Zachery(R)(CT) CTDI: DLP: Trnscb Date/Time: 06/20/2021 (1630) [email or web address] Orig Print D/T: S: 06/20/2021 (0509) PAGE 2 Signed Report- CT HEAD/BRAIN W/O [id number] 00:00:00 [facility] 1975 Sex: M Name: FERNANDO DAMON [facility] : 1975 Age/S: 46 / M [address] [place] [address] Unit #: [id number] Loc: [place] [address] Phys: Mónica Hugo MD Acct: [id number] Dis Date: Status:ADM IN PHONE #: [phone] Exam Date: 06/20/20211520 FAX #: [phone] Reason: headache EXAMS:CPT CODE: [id number] CT HEAD/BRAIN W/O CONT 60847 PROCEDURE INFORMATION: Exam: CT Head Without Contrast Exam date and time: 06/20/2021 3:14 PM Age: 46 years old Clinical indication: Pain; Headache TECHNIQUE: Imaging protocol: Computed tomography of the head without contrast. Radiation optimization: All CT scans at this facility use at least one of these dose optimization techniques: automated exposure co ntrol; mA and/or kV adjustment per patient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 Chris Phillips M.D. CC: Kristopher Marcial MD; Jc Capellan MD Technologist: Bettina Kim, RT(R); Autumn Durbin RT(R) Trnscrd Date/Time/By: 06/12/2021 (439) : By: [email or web address] Orig Print D/T: S: 06/12/2021 (440) PAGE 1 Signed Report- XR KNEE 1 OR 2 V [id number] 00:00:00 [facility] : 1975 Sex: M FAX: Kristopher Valenzuela MD [phone] [place]: St: REG FAX: N Jc Capellan MD [phone] Name: FERNANDO DAMON [facility] : 1975 Age/S: 46/M [address] [place] [address] Unit #: [id number] Loc: [place] [address] Phys: Jc Capellan MD Acct: [id number] Dis Date: Status: REG ER PHONE #: Exam Date: 06/12/2021 0347 FAX #: [phone] Reason: KNEE PAIN EXAMS: CPT CODE: [id number] XR KNEE 1 OR 2 V RT 67833 PROCEDURE INFORMATION: Exam: XR Right Knee Exam date and time: 06/12/2021 3:44 AM Age: 46 years old Clinical indication: Pain; Knee; Right; Additional info: Knee pain TECHNIQUE: Imaging protocol: XR Right knee. Views: 1 or 2 views. AP and Lateral COMPARISON: US EXTREM NON VASC COMP 11/03/2018 11:09 AM FINDINGS: Bones/joints: There is normal alignment without fracture or dislocation. The medial and lateral tibiofemoral compartments and patellofemoral compartment are unremarkable. No joint effusion. Soft tissues: There are no radiopaque foreign bodies. Notes: If there is further concern, recommend CT or MRI for complete assessment. IMPRESSION: No fracture or dislocation involving right knee. at 0441 Reported and signed by: Chris Phillips M.D. CC: Kristopher Marcial MD; Jc Capellan MD Technologist: Bettina Kim, RT(R); Autumn Durbin, RT(R) Trnncrd Date/Time/By: 06/12/2021 (440) : By: [email or web address] Orig Print D/T: S: 06/12/2021 (440) PAGE 1 Signed Report- XR TIBIA/FIBULA 2 V [id number] 00:00:00 [facility] : 1975 Sex: M FAX: Kristopher Valenzuela MD [phone] [place]: St: REG FAX: Jc Zheng MD [phone] Name: FERNANDO DAMON [facility] : 1975 Age/S: 46/M [address] [place] [address] Unit #: [id number] Loc: [place] [address] Phys: Jc Capellan MD Acct: [id number] Dis Date: Status: REG ER PHONE #: Exam Date: 06/12/2021 0347 FAX #: [phone] Reason: LEG PAIN EXAMS: CPT CODE: [id number] XR TIBIA/FIBULA 2 [place] RT [address]109 PROCEDURE INFORMATION: Exam: XR Right Tibia and Fibula Exam date and time: 06/12/2021 3:44 AM Age: 46 years old Clinical indication: Pain; Lower leg; Right; Additional info: Leg pain TECHNIQUE: Imaging protocol: XR Right tibia and fibula. Views: 2 views. AP and Lateral COMPARISON: US EXTREM NON VASC COMP 11/03/2018 11:09 AM FINDINGS: Bones/joints: There is a comminuted fracture involving the distal right fibula. The proximal and mid right fibula are intact. The right tibia is intact. Soft tissues: There are no radiopaque foreign bodies Notes: If there is further concern, recommend CT or MRI for complete assessment. IMPRESSION: Distal right fibular fracture. at 0442 Reported and signed by: Buzz Phillips M.D. CC: Kristopher Marcial MD; Jc Capellan MD Technologist: Bettina Kim, RT(R); Autumn Durbin RT(R) Trnscrd Date/Time/By: 06/12/2021 (044) : By: [email or web address] Orig Print D/T: S: 06/12/2021 (044) PAGE 1 Signed Report- XR SHOULDER 2 + V RT 2021-06-12 00:00:00 [facility] : 1975 Sex: M FAX: Kristopher Valenzueal MD [phone] [place]: St: REG FAX: Jc Zheng MD [phone] Name: FERNANDO DAMON [facility] : 1975 Age/S: 46/M [address] [place] [address] Unit #: [id number] Loc: [place] [address] Phys: Jc Capellan MD Acct: [id number] Dis Date: Status: REG ER PHONE #: [phone] Exam Date: 06/12/2021346 FAX #: [phone] Reason: SHOULDER PAIN EXAMS: CPT CODE: [id number] XR SHOULDER 2 + V RT 70862 PROCEDURE INFORMATION: Exam: XR Right Shoulder Exam date and time: 06/12/2021 3:44 AM Age: 46 years old Clinical indication: Pain; Shoulder; Right; Additional info: Shoulder pain TECHNIQUE: Imaging protocol: XR Right shoulder. Views: 2 or more views. AP INT/ EXT ROTATION, SCAPULAR Y COMPARISON: CT CHEST W/CONTRAST 06/12/2021 3:27 AM FINDINGS: Bones/joints: There are degenerative changes involving the AC joint. There is no acute fracture identified. No aggressive lesion. No dislocation. Soft tissues: There are no radiopaque foreign bodies. Notes: If there is further concern, CT or MRI is recommended for complete assessment. IMPRESSION: 1. No acute fracture or dislocation involving right shoulder. 2. Mild degenerative changes in AC joint. at 7870 Reported and signed by: Chris Phillips M.D. CC: Kristopher Marcial MD; Jc Capellan MD Technologist: Bettina Kim, RT(R); Autumn Durbin, RT(R) Trnscrd Date/Time/By: 06/12/2021 (0448) : By: [email or web address] Orig Print D/T: S: 06/12/2021 (0448) PAGE 1 Signed Report- XR FOREARM 2 VIEWS RT 2021-06-12 00:00:00 [facility] : 1975 Sex: M FAX: Kristopher Valenzuela MD [phone] [place]: St: REG FAX: Jc Zheng MD [phone] Name: FERNANDO DAMON [facility] : 1975 Age/S: 46/M [address] [place] [address] Unit #: [id number] Loc: [place] [address] Phys: Jc Capellan MD Acct: [id number] Dis Date: Status: REG ER PHONE #: Exam Date: 06/12/2021346 FAX #: [phone] Reason: FOREARM PAIN EXAMS: CPT CODE: [id number] XR [place] [address] [place] [address] PROCEDURE INFORMATION: Exam: XR Right Forearm Exam date and time:06/12/2021 3:44 AM Age: 46 years old Clinical indication: Pain; Lower or forearm; Right; Additional info: Forearm pain TECHNIQUE: Imaging protocol: XR Right forearm. Views: 2 views. Frontal and lateral COMPARISON: US EXTREM NON VASC COMP 11/03/2018 11:09 AM FINDINGS: Bones/joints: Intramedullary telly through the proximal right ulna is present. There is no acute fracture identified. No aggressive lesion.There are mild degenerative changes in the elbow joint. Soft tissues: There are no radiopaque foreign bodies. Notes: If there is further concern, recommend CT for complete assessment. IMPRESSION: No acute fracture involving right radius or right ulna identified. at 0449 Reported and signed by: Chris Phillips M.D. CC: Kristopher Marcial MD; Jc Capellan MD Technologist: Bettina Kim, RT(R); Autumn Durbin RT(R) Trnscrd Date/Time/By: 06/12/2021 (0449) : By: [email or web address] Orig Print D/T: S: 06/12/2021 (0449) PAGE 1 Signed Report- XR HUMERUS 2 + V RT 2021-06-12 00:00:00 [facility] : 1975 Sex: M FAX: Kristopher Valenzuela MD [phone] [place]: St: REG FAX: Jc Zheng MD [phone] Name: FERNANDO DAMON [facility] Santy [place] : 1975 Age/S: 46/M [address] [place] [address] Unit #: [id number] Loc: [place] [address] Phys: Jc Capellan MD Acct: [id number] Dis Date: Status: REG ER PHONE #: Exam Date: 06/12/2021346 FAX #: [phone] Reason: ARM PAIN EXAMS: CPT CODE: [id number] XR HUMERUS 2 + V RT 85606 PROCEDURE INFORMATION: Exam: XR Right Humerus Exam date and time: 06/12/2021 3:44 AM Age: 46 years old Clinical indication: Pain; Upper arm; Right; Additional info: Arm pain T ECHNIQUE: Imaging protocol: XR Right humerus. Views: 2 or more views. AP and Lateral COMPARISON: CT CHEST W/CONTRAST 06/12/2021 3:27 AM FINDINGS: Bones/joints: There is normal alignment of the humerus without fracture. Soft tissues: No radiopaque foreign bodies. Notes: If there is further concern, recom mend CT for complete assessment. IMPRESSION: No acute fracture involving right humerus identified. at 0451 Reported and signed by: Chris Phillips M.D. CC: Kristopher Marcial MD; Jc Capellan MD Technologist: Bettina Kim,RT(R); Autumn Durbin RT(R) Trnscrd Date/Time/By: 06/12/2021 (045) : By: [email or web address] Orig Print D/T: S: 06/12/2021 (045) PAGE 1 Signed Report- XR HAND 3 + V [id number] 00:00[facility]00[facility] : 1975 Sex: M FAX: Kristopher Valenzuela MD [phone] [place]: St: REG FAX: Jc Zheng MD [phone] Name: FERNANDO DAMON [facility] [place] : 1975 Age/S: 46/M [address] [place] [address] Unit #: [id number] Loc: [place] [address] Phys: Jc Capellan MD Acct: [id number] Dis Date: Status: REG ER PHONE #: Exam Date: 06/12/20219 FAX #: [phone] Reason: HAND PAIN EXAMS: CPT CODE: [id number] XR HAND 3 + V RT 60357 PROCEDURE INFORMATION: Exam: XR Right Hand Exam date and time: 06/12/2021 3:44 AM Age: 46 years old Clinical indication: Pain; Hand; Right; Additional info: Hand pain TECHNIQUE: Imaging protocol: XR Right hand. Views: 3 or more views. Frontal Oblique Lateral COMPARISON: US EXTREM NON VASC COMP 11/03/2018 11:09 AM FINDINGS: Bones/joints: There is an old healed fracture involving the right 5th metacarpal bone. No acute fracture or dislocation is identified. No aggressive lesion. Soft tissues: No radiopaque foreign body. Notes: If there is further concern, recommend CT or MRI for complete assessment. IMPRESSION: 1. No acute fracture or dislocation involving right hand. 2. Old healed fracture of right 5th metacarpal bone. at 0453 Reported and signed by: Chris Phillips M.D. CC: Kristopher Marcial MD;Jc Capellan MD Technologist: Bettina Kim, RT(R); Autumn Durbin RT(R) [facility] Date/Time/By: 06/12/2021 (0453) : By: [email or web address] Orig Print D/T: S: 06/12/2021 (0454) PAGE 1 Signed Report- XR HAND 3 + V [id number] 00:00:00 [facility] : 1975 Sex: M FAX: Kristopher Valenzuela MD [phone] [place]: St: [facility] FAX: Jc Zheng MD [phone] Name: FERNANDO DAMON [facility] : 1975 Age/S: 46/M [address] [place] [address] Unit #: [id number] Loc: [place] [address] Phys: Jc Capellan MD Acct: [id number] Dis Date: Status: ADM IN PHONE #: [phone] Exam Date: 06/12/2021346 FAX #: [phone] Reason: HAND PAIN EXAMS: CPT CODE: [id number] XR HAND 3 + V [place] [address]553 PROCEDURE INFORMATION: Exam: XR Left Hand Exam date and time: :44 AM Age: 46 years old Clinical indication: Pain; Hand; Left; Additional info: Hand pain TECHNIQUE: Imaging protocol: XR Left hand. Views: 3 or more views. Frontal Oblique Lateral COMPARISON: US EXTREM NON VASC COMP 11/03/2018 11:09 AM FINDINGS: Bones/joints: There is normal alignment without fractures or dislocations. The joints are unremarkable. The limited visualized wrist region is grossly unremarkable. Soft tissues: No radiopaque foreign bodies. IMPRESSION: No fracture or dislocation. at 0456 Reported and signed by: Adrián Ricardo M.D. CC: Kristopher Marcial MD; Jc Capellan MD Technologist: Bettina Kim, RT(R); Autumn Durbin RT(R) Trnncrd Date/Time/By: 06/12/2021 (0456) : By: Carolyn Padron Print D/T: S: 06/12/2021 (0456) PAGE 1 Signed ReportCoronavirus 2019 nCoV [id number] 14:52:00 Test Item Value Reference Range Interpretation Comments Coronavirus 2019 POSITIVE Negative A nCoV Bedside (test --------- -----The Countdown To [employer] ID code = NOW utilizes is othermal [id number]) [employer] Enzyme Amplification Reaction (NEAR) technology in the qualitat ivedetection of infectious d iseases. With NEAR technology,ampl ified target detection is ac hieved with the use offluor escently labeled molecul ar beacons, comparable to P CRtechniques -----Negative r esults should be treat ed as presumptive and , ifinconsistent with clinical signs and symptoms or necessaryfor patient management, elissa uld be tested with an alternativemole cular assay. Negative result s do not preclude [id number] tion and should not be u sed as the sole basis forp atient management deci sions. Negative result s should beconsidered in the context of a patient's recent exposures,histo ry, presence of clinical sig ns and symptoms consis tentwith COVID-19. BASIC METABOLIC [id number] 17:20:00 Test Item Value Reference Range Interpretation Comments SODIUM (test code = NA) 139 mEq/L 134-147 N POTASSIUM (test code = 3.8 mEq/L 3.4-5.0 N K) CHLORIDE (test code = 107 mEq/L 100-108 N CL) CARBON DIOXIDE (test 24 mEq/l 21-33 N code = CO2) ANION GAP (test code = 11 0-20 N GAP) GLUCOSE (test code = 110 mg/dL 70-110 N GLU) BLOOD UREA NITROGEN 14 mg/dL 7-18 N (test code = BUN) GLOMERULAR FILTRATION 91.7 95-105 L Units of measure = RATE (test code = GFR) ml/mi n/1.73 m2 CREATININE (test code = 0.9 mg/dL 0.6-1.3 N CREAT) CALCIUM (test code = 8.7 mg/dL 8.0-10.5 N CA) CBC W/AUTO [id number] 17:06:00 Test Item Value Reference Range Interpretation Comments WHITE BLOOD CELL (test code = 5.9 x10 3/uL 4.5-11.0 N WBC) RED BLOOD CELL (test code = 4.77 x10 6/uL 4.00-5.60 N RBC) HEMOGLOBIN (test code = HGB) 15.1 g/dL 12.5-16.9 N HEMATOCRIT (test code = HCT) 44.3 % 37.5-50.7 N MEAN CELL VOLUME (test code = 92.9 fL 81.0-99.0 N MCV) MEAN CELL HGB (test code = MCH) 31.7 pg 27.0-33.0 N MEAN CELL HGB CONCETRATION 34.1 g/dL 33.0-37.0 N (test code = MCHC) RED CELL DISTRIBUTION WIDTH CV 12.8 % 11.5-14.5 N (test code = RDW) RED CELL DISTRIBUTION WIDTH SD 44.1 fL 37.0-54.0 N (test code = RDW-SD) PLATELET COUNT (test code = 173 x10 3/uL 150-400 N PLT) MEAN PLATELET VOLUME (test code 9.7 fL 7.0-9.0 H = MPV) NEUTROPHIL % (test code = NT%) 41.8 % 56.0-77.0 L IMMATURE GRANULOCYTE % (test 0.3 % 0.0-2.0 N code = IG%) LYMPHOCYTE % (test code = LY%) 45.2 % 14.0-32.0 H MONOCYTE % (test code = MO%) 10.2 % 4.8-9.0 H EOSINOPHIL % (test code = EO%) 1.7 % 0.3-3.7 N BASOPHIL % (test code = BA%) 0.8 % 0.0-2.0 N NUCLEATED RBC % (test code = 0.0 % 0-0 N NRBC%) NEUTROPHIL # (test code = NT#) 2.47 x10 3/uL 2.0-7.6 N IMMATURE GRANULOCYTE # (test 0.02 x10 3/uL 0.00-0.03 N code = IG#) LYMPHOCYTE # (test code = LY#) 2.67 x10 3/uL 1.0-3.8 N MONOCYTE # (test code = MO#) 0.60 x10 3/uL 0.1-0.8 N EOSINOPHIL # (test code = EO#) 0.10 x10 3/uL 0.0-0.2 N BASOPHIL # (test code = BA#) 0.05 x10 3/uL 0.0-0.2 N NUCLEATED RBC # (test code = 0.00 x10 3/uL 0.0-0.1 N NRBC#) MANUAL DIFF REQUIRED (test code NO = MDIFF) BASIC METABOLIC [id number] 14:10:00 Test Item Value Reference Range Interpretation Comments SODIUM (test code = NA) 142 mEq/L 134-147 N POTASSIUM (test code = 4.5 mEq/L 3.4-5.0 N K) CHLORIDE (test code = 105 mEq/L 100-108 N CL) CARBON DIOXIDE (test 29 mEq/l 21-33 N code = CO2) ANION GAP (test code = 13 0-20 N GAP) GLUCOSE (test code = 102 mg/dL 70-110 N GLU) BLOOD UREA NITROGEN 13 mg/dL 7-18 N (test code = BUN) GLOMERULAR FILTRATION 65.8 95-105 L Units of measure = RATE (test code = GFR) ml/mi n/1.73 m2 CREATININE (test code = 1.2 mg/dL 0.6-1.3 N CREAT) CALCIUM (test code = 9.5 mg/dL 8.0-10.5 N CA) CBC W/AUTO [id number] 14:07:00 Test Item Value Reference Range Interpretation Comments WHITE BLOOD CELL (test code = 5.9 x10 3/uL 4.5-11.0 N WBC) RED BLOOD CELL (test code = 5.28 x10 6/uL 4.00-5.60 N RBC) HEMOGLOBIN (test code = HGB) 16.5 g/dL 12.5-16.9 N HEMATOCRIT (test code = HCT) 49.3 % 37.5-50.7 N MEAN CELL VOLUME (test code = 93.4 fL 81.0-99.0 N MCV) MEAN CELL HGB (test code = MCH) 31.3 pg 27.0-33.0 N MEAN CELL HGB CONCETRATION 33.5 g/dL 33.0-37.0 N (test code = MCHC) RED CELL DISTRIBUTION WIDTH CV 12.6 % 11.5-14.5 N (test code = RDW) RED CELL DISTRIBUTION WIDTH SD 43.6 fL 37.0-54.0 N (test code = RDW-SD) PLATELET COUNT (test code = 198 x10 3/uL 150-400 N PLT) MEAN PLATELET VOLUME (test code 10.0 fL 7.0-9.0 H = MPV) NEUTROPHIL % (test code = NT%) 50.9 % 56.0-77.0 L IMMATURE GRANULOCYTE % (test 0.3 % 0.0-2.0 N code = IG%) LYMPHOCYTE % (test code = LY%) 37.9 % 14.0-32.0 H MONOCYTE % (test code = MO%) 8.2 % 4.8-9.0 N EOSINOPHIL % (test code = EO%) 1.5 % 0.3-3.7 N BASOPHIL % (test code = BA%) 1.2 % 0.0-2.0 N NUCLEATED RBC % (test code = 0.0 % 0-0 N NRBC%) NEUTROPHIL # (test code = NT#) 3.02 x10 3/uL 2.0-7.6 N IMMATURE GRANULOCYTE # (test 0.02 x10 3/uL 0.00-0.03 N code = IG#) LYMPHOCYTE # (test code = LY#) 2.25 x10 3/uL 1.0-3.8 N MONOCYTE # (test code = MO#) 0.49 x10 3/uL 0.1-0.8 N EOSINOPHIL # (test code = EO#) 0.09 x10 3/uL 0.0-0.2 N BASOPHIL # (test code = BA#) 0.07 x10 3/uL 0.0-0.2 N NUCLEATED RBC # (test code = 0.00 x10 3/uL 0.0-0.1 N NRBC#) MANUAL DIFF REQUIRED (test code NO = MDIFF) PROTHROMBIN [id number] 14:05:00 Test Item Value Reference Range Interpretation Comments PROTHROMBIN TIME 10.7 SECONDS 9.3-12.9 N PATIENT (test code = PTP) INTERNATIONAL NORMAL 1.0 0.8-1.2 N TARGET INR BY RATIO (test code = INDICATIO N Indication INR) INR1. Prophylax is of venous thrombos is 2.0 - 3.0 (orthoped ic surgery), Proph ylaxis of venous throm bosis (other than hig h-risk surgery), Treat ment of Deep Vein Thrombosis/Pulm onary Embolism, Preve ntion of systemic emb olism - Tissue heart va lves, Acute Myocardia l Infarction (to prevent systemic emboli sm), Valvular heart disease, Atrial Fibrillation, Bileaflet mecha nical valve in aortic position.2. Mec hanical prosthetic valv es (high risk), 2. 5 - 3.5 Presence of Lup us Anticoagulant o r Antiphospholipi d Antibodies, Pre vention of systemic emb olism - Acute Myocardia l Infarction (to prevent recurrent infar ct). - XR CHEST 2 [id number] 00:00:00 [facility] : 1975 Sex: M FAX: Richard Valenzuela MD [phone] [place]: St: PRE FAX: Kristopher Valenzuela MD [phone] ------ [facility] 1975 Age/S: 45/M [address] [place] [address] Unit #: [id number] Loc: [place] [address] Phys: Richard Marcial MD Acct: [id number] Dis Date: Status: PRE [facility] [place] #: [phone] Exam Date: 04/01/2021 1416 FAX #: [phone] Reason: PREOP EXAMS: CPT CODE: [id number] XR CHEST2 V 72826 PROCEDURE INFORMATION: Exam: XR Chest Exam date and time: 04/01/2021 2:07 PM Age: 45 years old Clinical indication: Pre-operative exam; Respiratory screening exam; Additional info: Preop TECHNIQUE: Imaging protocol: XR of the chest. Views: 2 views. PA and Lateral COMPARISON: CR XR CHEST 1V 05/18 12:46 AM FINDINGS: Lungs: The lungs are clear. Pleural spaces: No pleural effusion. No pneumothorax. Heart/Mediastinum: Cardiomediastinal silhouette is normal in size. Bones/joints: Surgical plate and screws along the left clavicle once again seen. IMPRESSION: No acute or active pulmonary findings. at 1501 Reported and signed by: Jaden Escoto M.D. CC: Richard Marcial MD; Kristopher Marcial MD Technologist: Ethan Serna,RT(R) Trnscrd Date/Time/By: 04/01/2021 (1500) : By: [email or web address] Orig Print D/T: S: 04/01/2021 (1500) PAGE 1 Signed Report - CT ANGIO [id number] 19:18:00 [facility] : 1975 Sex: M Name: FERNANDO DAMON [facility] BY [facility] [place] : 1975 Age/S: 45 / M [address] [place] [address] Unit #: [id number] Loc: [place] [address] Phys: Amanda Cramer MD Acct: [id number] Dis Date: Status: DEP CLI PHONE #: [phone] Exam Date: 06/26/2020 1423 FAX #: [phone] Reason: CHEST PAIN UNSPECIFIED Report Has Been Amended EXAMS: CPT CODE: [id number] CT ANGIO CHEST [id number] Addendum - 01/04/2021 SIGNED 01/04/2021 ADDENDUM: [id number] CT/CTACHWWO The 4.5 mm nodule in the right lower lobe is documented to be stable going back to a prior CT of the chest from 11/01/2018. 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 The older CT chest from 05/06/2011 is not available for comparison. at 1918 Reported and signed by: Frankie Gonzalez M.D. Report CT ANGIOGRAM OF [facility] WITH RECONSTRUCTION DATED 06/26/2020. INDICATION: Chest pain. COMPARISON: CT chest dated 09/10/2019. TECHNIQUE: A dynamic contrast enhanced helical CT angiogram of the chest was performed using pulmonary embolism protocol with subsequent sagittal and coronal MIP reconstruction as well as 3-D reconstruction. IV Contrast: [address] imaging performed at this location utilizes radiation dose optimization techniques which include one or more of the followin) Automated exposure control; 2) Adjustment of mA and/or kV; 3) Use of iterative reconstructive technique. CT radiation dose DLP (mGy-cm): 864. FINDINGS: PULMONARY ARTERIES: The pulmonary arteries appear to enhance normally. No low-density pulmonary artery filling defects are identified to make the CT diagnosis of acute pulmonary embolism. MEDIASTINUM: The CT images of the mediastinum demonstrate no evidence of a mediastinal mass or enlarged mediastinal lymph nodes. The PAGE 1 Signed Report (CONTINUED) Name: FERNANDO DAMON [facility] : 1975 Age/S: 45 / M [address] [place] [address] Blvd Unit #: [id number] Loc: [place] [address] Phys: Amanda Cramer MD Acct: [id number] Dis Date: Status: DEP CLI PHONE #: [phone] Exam Date: 06/26/2020 1423 FAX #: [phone] Reason: CHEST PAIN UNSPECIFIED Report Has Been Amended EXAMS: CPT CODE: [id number] CT ANGIO CHEST 11345 (Continued) thoracic aorta enhances normally without evidence of aneurysm or dissection. Note is made of dense atherosclerotic calcification or stents in the left coronary artery. PLEURAL SPACE: No acute pleural space abnormalities are detected. LUNGS: The lungs appear clear of acute disease. Dependent atelectasis is noted. A 4.5 mm noncalcifiednodule is identified in the periphery of the right lower lobe (series 3, image 69). UPPER ABDOMEN: The visualized upper abdominal organs are unremarkable. ADDITIONAL FINDINGS: None. IMPRESSION: 1. No CT evidence of acute pulmonary embolism. No acute CT abnormalities of the lungs, mediastinum or pleural spaces are detected. 2. A 4.5 mm noncalcified nodule is identified in the right lower lobe. For jailene ent's at low risk (minimal or absent history of smoking and of other known risk factors), no routinefollow-up as indicated. For patient's at high risk (history of smoking or of other known risk factors) consider optional CT chest in 12 months. SL: 131 at 1908 Reported and signed by: Frankie Gonzalez M.D. CC: Kristopher Marcial MD; Amanda Cramer MD Technologist:Escobar Nelson, RT(R)(CT) CTDI: DLP: Trnscb Date/Time: 06/26/2020 (1907) Sascha Orig Print D/T: S: 06/26/2020 (1910) PAGE 2 Signed Report- CT ANGIO [id number] 19:08:00 [facility] : 1975 Sex: M Name: TETEFERNANDO [facility] : 1975 Age/S: 45 / M [address] [place] [address] Unit #: [id number] Loc: [place] [address] Phys: Amanda Cramer MD Acct: [id number] Dis Date: Status: CHANEL PHONE #: [phone] Exam Date: 06/26/2020 1423 FAX #: [phone] Reason: CHEST PAIN UNSPECIFIED EXAMS: CPT CODE: [id number] CT ANGIO CHEST 93745 CT ANGIOGRAM OF THE CHEST WITH RECONSTRUCTION DATED 06/26/2020. INDICATION: Chest pain. COMPARISON: CT chest dated 09/10/2019. TECHNIQUE: A dynamic contrast enhanced helical CT angiogram of the chest was performed using pulmonary embolism protocol with subsequent sagittal and coronal MIP reconstruction as well as 3-D reconstruction. IV Contrast: [address] imaging performed at this location utilizes radiation dose optimization techniques which include one or more of the followin) Automated exposure control; 2) Adjustment of mA and/or kV; 3) Use of iterative reconstructive technique. CT radiation dose DLP (mGy-cm): 864. FINDINGS: PULMONARY ARTERIES: The pulmonary arteries appear to enhance normally. No low-density pulmonary artery filling defects are identified to make the CT diagnosis of acute pulmonary embolism. MEDIASTINUM: The CTimages of the mediastinum demonstrate no evidence of a mediastinal mass or enlarged mediastinal lymph nodes. The thoracic aorta enhances normally without evidence of aneurysm or dissection. Note is made of dense atherosclerotic calcification or stents in the left coronary artery. PLEURAL SPACE: No acute pleural space abnormalities are detected. LUNGS: The lungs appear clear of acute disease. Dependent atelectasis is noted. A 4.5 mm noncalcified nodule is identified in the periphery of the right lower lobe (series 3, image 69). UPPER ABDOMEN: The visualized upper abdominal organs are unremarkable. ADDITIONAL FINDINGS: None. IMPRESSION: 1. No CT evidence of acute pulmonary embolism. No acute CT abnor malities of the lungs, mediastinum or pleural spaces are detected. 2. A 4.5 mm noncalcified nodule is identified in the right lower PAGE 1 Signed Report (CONTINUED) Name: FERNANDO DAMON [facility] : 1975 Age/S: 45 / M [address] [place] [address] Unit #: [id number] Loc: [place] [address] Phys: Amanda Cramer MD Acct: [id number] Dis Date: Status: REG CLI PHONE #: [phone] Exam Date: 06/26/2020 1423 FAX #: [phone] Reason: CHEST PAIN UNSPECIFIED EXAMS: CPT CODE: [id number] CT ANGIO CHEST 18095 (Continued) lobe. For patient's at low risk (minimal or absent history of smoking and of other known risk factors), no routine follow-up as indicated. For patient's at high risk (historyof smoking or of other known risk factors) consider optional CT chest in 12 months. SL: 131 at 1908 Reported and signed by:Frankie Gonzalez M.D. CC: Kristopher Marcial MD; Amanda Cramer MD Technologist:Escobar Nelson, RT(R) CTDI: DLP: Trnscb Date/Time: 06/26/2020 (1907) t.SDR.DMM Orig Print D/T: S: 06/26/2020 (1910) PAGE 2 Signed ReportLIPOPROTEIN LDL 2020-06-06 06:53:00 Test Item Value Reference Range Interpretation Comments LIPOPROTEIN LDL 109.3 mg/dL 0-100 H <100 OPTIMAL 100-129 (test code = LDL) NEAR OPTIM AL/ABOVE [id number] [id number] 89 HIGH>LO=668 MADELEINE Y HIGH*Guidelines provided by the National Choles terol EducationProgra Adult Treatment Panel III [id number] 06:34:00 Test Item Value Reference Range Interpretation Comments TROPONIN-I 0.072 ng/mL 0.000-0.045 H Negative: <= 0. 045 Positive: (test code = >= 0.046 Correl ation with TROPI) serial results, other cardiac markers andclin ical findings is necessary to determine the clinicalsignifi cance of this result. Results using different metho dologies should not be c omparedto one another as lisandro titative results may hunter y by method. BASIC METABOLIC [id number] 06:05:00 Test Item Value Reference Range Interpretation Comments SODIUM (test code = NA) 138 mEq/L 134-147 N POTASSIUM (test code = 4.1 mEq/L 3.4-5.0 N K) CHLORIDE (test code = 108 mEq/L 100-108 N CL) CARBON DIOXIDE (test 23 mEq/l 21-33 N code = CO2) ANION GAP (test code = 11 0-20 N GAP) GLUCOSE (test code = 104 mg/dL 70-110 N GLU) BLOOD UREA NITROGEN 16 mg/dL 7-18 N (test code = BUN) GLOMERULAR FILTRATION 81.2 95-105 L Units of measure = RATE (test code = GFR) ml/mi n/1.73 m2 CREATININE (test code = 1.0 mg/dL 0.6-1.3 N CREAT) CALCIUM (test code = 9.2 mg/dL 8.0-10.5 N CA) [id number] 14:16:00 Test Item Value Reference Range Interpretation Comments TROPONIN-I 0.010 ng/mL 0.000-0.045 N Negative: <= 0. 045 Positive: (test code = >= 0.046 Correl ation with TROPI) serial results, other cardiac markers andclin ical findings is necessary to determine the clinicalsignifi cance of this result. Results using different metho dologies should not be c omparedto one another as lisandro titative results may hunter y by method. 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 [facility] BASIC METABOLIC [id number] 11:15:00 Test Item Value Reference Range Interpretation Comments SODIUM (test code = NA) mEq/L 134-147 POTASSIUM (test code = K) mEq/L 3.4-5.0 CHLORIDE (test code = CL) mEq/L 100-108 CARBON DIOXIDE (test code = CO2) mEq/l 21-33 ANION GAP (test code = GAP) 0-20 GLUCOSE (test code = GLU) mg/dL 70-110 BLOOD UREA NITROGEN (test code = BUN) mg/dL 7-18 GLOMERULAR FILTRATION RATE (test code 95-105 = GFR) CREATININE (test code = CREAT) mg/dL 0.6-1.3 CALCIUM (test code = CA) mg/dL 8.0-10.5 [id number] 11:15:00 Test Item Value Reference Range Interpretation Comments TROPONIN-I 0.012 ng/mL 0.000-0.045 N Negative: <= 0. 045 Positive: (test code = >= 0.046 Correl ation with TROPI) serial results, other cardiac markers andclin ical findings is necessary to determine the clinicalsignifi cance of this result. Results using different metho dologies should not be c omparedto one another as lisandro titative results may hunter y by method. BASIC METABOLIC [id number] 11:15:00 Test Item Value Reference Range Interpretation Comments SODIUM (test code = NA) 142 mEq/L 134-147 N POTASSIUM (test code = 4.1 mEq/L 3.4-5.0 N K) CHLORIDE (test code = 107 mEq/L 100-108 N CL) CARBON DIOXIDE (test 27 mEq/l 21-33 N code = CO2) ANION GAP (test code = 12 0-20 N GAP) GLUCOSE (test code = 116 mg/dL 70-110 H GLU) BLOOD UREA NITROGEN 13 mg/dL 7-18 N (test code = BUN) GLOMERULAR FILTRATION 65.8 95-105 L Units of measure = RATE (test code = GFR) ml/mi n/1.73 m2 CREATININE (test code = 1.2 mg/dL 0.6-1.3 N CREAT) CALCIUM (test code = 9.0 mg/dL 8.0-10.5 N CA) [id number] 11:15:00 Test Item Value Reference Range Interpretation Comments TROPONIN-I 0.012 ng/mL 0.000-0.045 N Negative: <= 0. 045 Positive: (test code = >= 0.046 Correl ation with TROPI) serial results, other cardiac markers andclin ical findings is necessary to determine the clinicalsignifi cance of this result. Results using different metho dologies should not be c omparedto one another as lisandro titative results may hunter y by method. Coronavirus 2019 nCoV [id number] 11:09:00 Test Item Value Reference Range Interpretation Comments Coronavirus 2019 NEGATIVE Negative Negative re sults should be nCoV Bedside (test treated a s presumptive and, code = ifinconsistent with [id number]) clinical signs and symptoms or necessaryfor patient management, elissa uld be tested with an alternativemole cular assay. Negative result s do not preclude [id number]-IoR-[id number] tion and should not be u sed as the sole basis forp atient management deci sions. Negative result s should beconsidered in the context of a patient's recent exposures,histo ry, presence of clinical sig ns and symptoms consis tentwith COVID-19. CBC W/AUTO [id number] 11:06:00 Test Item Value Reference Range Interpretation Comments WHITE BLOOD CELL (test code = 8.1 x10 3/uL 4.5-11.0 N WBC) RED BLOOD CELL (test code = 5.19 x10 6/uL 4.00-5.60 N RBC) HEMOGLOBIN (test code = HGB) 16.5 g/dL 12.5-16.9 N HEMATOCRIT (test code = HCT) 49.1 % 37.5-50.7 N MEAN CELL VOLUME (test code = 94.6 fL 81.0-99.0 N MCV) MEAN CELL HGB (test code = MCH) 31.8 pg 27.0-33.0 N MEAN CELL HGB CONCETRATION 33.6 g/dL 33.0-37.0 N (test code = MCHC) RED CELL DISTRIBUTION WIDTH CV 13.0 % 11.5-14.5 N (test code = RDW) RED CELL DISTRIBUTION WIDTH SD 46.0 fL 37.0-54.0 N (test code = RDW-SD) PLATELET COUNT (test code = 204 x10 3/uL 150-400 N PLT) MEAN PLATELET VOLUME (test code 9.5 fL 7.0-9.0 H = MPV) NEUTROPHIL % (test code = NT%) 58.3 % 56.0-77.0 N IMMATURE GRANULOCYTE % (test 0.5 % 0.0-2.0 N code = IG%) LYMPHOCYTE % (test code = LY%) 30.8 % 14.0-32.0 N MONOCYTE % (test code = MO%) 8.7 % 4.8-9.0 N EOSINOPHIL % (test code = EO%) 1.1 % 0.3-3.7 N BASOPHIL % (test code = BA%) 0.6 % 0.0-2.0 N NUCLEATED RBC % (test code = 0.0 % 0-0 N NRBC%) NEUTROPHIL # (test code = NT#) 4.74 x10 3/uL 2.0-7.6 N IMMATURE GRANULOCYTE # (test 0.04 x10 3/uL 0.00-0.03 H code = IG#) LYMPHOCYTE # (test code = LY#) 2.51 x10 3/uL 1.0-3.8 N MONOCYTE # (test code = MO#) 0.71 x10 3/uL 0.1-0.8 N EOSINOPHIL # (test code = EO#) 0.09 x10 3/uL 0.0-0.2 N BASOPHIL # (test code = BA#) 0.05 x10 3/uL 0.0-0.2 N NUCLEATED RBC # (test code = 0.00 x10 3/uL 0.0-0.1 N NRBC#) MANUAL DIFF REQUIRED (test code NO = MDIFF) [id number] 06:31:00 Test Item Value Reference Range Interpretation Comments TROPONIN-I 0.010 ng/mL 0.000-0.045 N Negative: <= 0. 045 Positive: (test code = >= 0.046 Correl ation with TROPI) serial results, other cardiac markers andclin ical findings is necessary to determine the clinicalsignifi cance of this result. Results using different metho dologies should not be c omparedto one another as lisandro titative results may hunter y by method. BASIC METABOLIC [id number] 02:36:00 Test Item Value Reference Range Interpretation Comments SODIUM (test code = NA) 141 mEq/L 134-147 N POTASSIUM (test code = 4.3 mEq/L 3.4-5.0 N K) CHLORIDE (test code = 110 mEq/L 100-108 H CL) CARBON DIOXIDE (test 25 mEq/l 21-33 N code = CO2) ANION GAP (test code = 11 0-20 N GAP) GLUCOSE (test code = 108 mg/dL 70-110 N GLU) BLOOD UREA NITROGEN 12 mg/dL 7-18 N (test code = BUN) GLOMERULAR FILTRATION 81.2 95-105 L Units of measure = RATE (test code = GFR) ml/mi n/1.73 m2 CREATININE (test code = 1.0 mg/dL 0.6-1.3 N CREAT) CALCIUM (test code = 9.3 mg/dL 8.0-10.5 N CA) HEPATIC FUNCTION [id number] 02:36:00 Test Item Value Reference Range Interpretation Comments TOTAL PROTEIN (test code = PROT) 7.7 g/dL 6.4-8.2 N ALBUMIN (test code = ALB) 4.90 g/dL 3.4-5.0 N BILIRUBIN TOTAL (test code = BILT) 0.50 mg/dL 0.0-1.0 N BILIRUBIN DIRECT (test code = 0.10 MG/DL 0.0-0.30 N BILD) BILIRUBIN INDIRECT (test code = 0.40 MG/DL BILIND) SGOT/AST (test code = AST) 33 IUnit/L 15-37 N SGPT/ALT (test code = ALT) 45 IUnit/L 30-65 N ALKALINE PHOSPHATASE TOTAL (test 66 IUnit/L 20-125 N code = ALKP) [id number] 02:36:00 Test Item Value Reference Range Interpretation Comments LIPASE (test code = LIP) 190 U/L 13-57 H [id number] 02:36:00 Test Item Value Reference Range Interpretation Comments MAGNESIUM (test code = MAG) 2.18 mg/dL 1.80-2.40 N [id number] 02:36:00 Test Item Value Reference Range Interpretation Comments TROPONIN-I 0.011 ng/mL 0.000-0.045 N Negative: <= 0. 045 Positive: (test code = >= 0.046 Correl ation with TROPI) serial results, other cardiac markers andclin ical findings is necessary to determine the clinicalsignifi cance of this result. Results using different metho dologies should not be c omparedto one another as lisandro titative results may hunter y by method. DRUGS OF ABUSE SCREEN [id number] 01:45:00 Test Item Value Reference Range Interpretation Comments URN COCAINE (test code NEGATIVE NEGATIVE = COCAURN) URN CANNABINOIDS (test NEGATIVE NEGATIVE code = CANNABURN) URN AMPHETAMINE (test POSITIVE NEGATIVE A code = AMPHETURN) URN BARBITURATE (test NEGATIVE NEGATIVE code = BARBITURN) URN BENZODIAZEPINE POSITIVE NEGATIVE A Cut-off v alue:200 (test code = BENZOURN) ng/mL URN OPIATES (test code POSITIVE NEGATIVE A Cut-o ff value:2000 = OPIATURN) ng/mL URN PHENCYCLIDINE (PCP) NEGATIVE NEGATIVE Cuto ffs:Barbiturates (test code = PHENCURN) 200 ng/mLBenzodiaze pines 200 ng/mLTHC Cannabinoids 50 ng/mLOpiates(Mo rphine) 2000 ng/mLAmphe tamine 1000 ng/mLCocai ne 300 ng/mLPCP phency clidine 25 ng/mL Unconf irmed screening resul ts shouldnot be us ed for non-medical pur poses. - XR CHEST 1 [id number] 01:21:00 [facility] : 1975 Sex: M FAX: Kristopher Valenzuela MD [phone] [place]: St: [facility] FAX: Baldo Mares MD [phone] Name: FERNANDO DAMON NOHEMI [facility] : 1975 Age/S: 45/M [address] [place] [address] Unit #: [id number] Loc: [place] [address] Phys: Baldo Mares MD Acct: [id number] Dis Date: Status: REG ER PHONE #: [phone] Exam Date: 06/05/2020108 FAX #: [phone] Reason: Chest Pain EXAMS: CPT CODE: [id number] XRCHEST 1 V 87219 Chest x-ray 1 view History: Chest pain Comparison: Chest x-ray 03/25/2019 Findings: Mediastinum: The cardiomediastinal contours are unremarkable. Lungs and pleural spaces: There is no focal consolidation, pneumothorax or pleural effusion. The pulmonary vascularity is normal. Plain screwfixation changes of the left clavicle is redemonstrated. Impression: No acute cardiopulmonary findings. at 0121 Reported and signed by: Maxine Marin M.D. CC: Kristopher Marcial MD; Baldo Mares MD Technologist: RT Svitlana(R) Trnscrd Date/Time/By: 06/05/2020 (012) : By: [email or web address] Orig Print D/T: S: 06/05/2020 (0125) PAGE 1 Signed ReportB-TYPE NATRIURETIC [id number] 01:10:00 Test Item Value Reference Range Interpretation Comments B-TYPE NATRIURETIC PEPTIDE (test 6.0 PG/ML 0-100 N code = BNP) PROTHROMBIN [id number] 01:02:00 Test Item Value Reference Range Interpretation Comments PROTHROMBIN TIME 10.9 SECONDS 9.3-12.9 N PATIENT (test code = PTP) INTERNATIONAL NORMAL 1.0 0.8-1.2 N TARGET INR BY RATIO (test code = INDICATIO N Indication INR) INR1. Prophylax is of venous thrombos is 2.0 - 3.0 (orthoped ic surgery), Proph ylaxis of venous throm bosis (other than hig h-risk surgery), Treat ment of Deep Vein Thrombosis/Pulm onary Embolism, Preve ntion of systemic emb olism - Tissue heart va lves, Acute Myocardia l Infarction (to prevent systemic emboli sm), Valvular heart disease, Atrial Fibrillation, Bileaflet mecha nical valve in aortic position.2. [facility] hanical prosthetic valv es (high risk), 2. 5 - 3.5 Presence of Lup us Anticoagulant o r Antiphospholipi d Antibodies, Pre vention of systemic emb olism - Acute Myocardia l Infarction (to prevent recurrent infar ct). THROMBOPLASTIN TIME [id number] 01:02:00 Test Item Value Reference Range Interpretation Comments THROMBOPLASTIN TIME 35.0 Seconds 25.0-39.5 N Therape utic Range: PARTIAL (test code = 50.4 - 88.3 Seconds PTT) Effective 07/03/2018 CBC W/AUTO [id number] 00:49:00 Test Item Value Reference Range Interpretation Comments WHITE BLOOD CELL (test code = 7.8 x10 3/uL 4.5-11.0 N WBC) RED BLOOD CELL (test code = 5.39 x10 6/uL 4.00-5.60 N RBC) HEMOGLOBIN (test code = HGB) 17.1 g/dL 12.5-16.9 H HEMATOCRIT (test code = HCT) 51.4 % 37.5-50.7 H MEAN CELL VOLUME (test code = 95.4 fL 81.0-99.0 N MCV) MEAN CELL HGB (test code = MCH) 31.7 pg 27.0-33.0 N MEAN CELL HGB CONCETRATION 33.3 g/dL 33.0-37.0 N (test code = MCHC) RED CELL DISTRIBUTION WIDTH CV 13.1 % 11.5-14.5 N (test code = RDW) RED CELL DISTRIBUTION WIDTH SD 45.6 fL 37.0-54.0 N (test code = RDW-SD) PLATELET COUNT (test code = 208 x10 3/uL 150-400 N PLT) MEAN PLATELET VOLUME (test code 9.7 fL 7.0-9.0 H = MPV) NEUTROPHIL % (test code = NT%) 51.5 % 56.0-77.0 L IMMATURE GRANULOCYTE % (test 0.4 % 0.0-2.0 N code = IG%) LYMPHOCYTE % (test code = LY%) 39.7 % 14.0-32.0 H MONOCYTE % (test code = MO%) 7.2 % 4.8-9.0 N EOSINOPHIL % (test code = EO%) 0.6 % 0.3-3.7 N BASOPHIL % (test code = BA%) 0.6 % 0.0-2.0 N NUCLEATED RBC % (test code = 0.0 % 0-0 N NRBC%) NEUTROPHIL # (test code = NT#) 3.98 x10 3/uL 2.0-7.6 N IMMATURE GRANULOCYTE # (test 0.03 x10 3/uL 0.00-0.03 N code = IG#) LYMPHOCYTE # (test code = LY#) 3.08 x10 3/uL 1.0-3.8 N MONOCYTE # (test code = MO#) 0.56 x10 3/uL 0.1-0.8 N EOSINOPHIL # (test code = EO#) 0.05 x10 3/uL 0.0-0.2 N BASOPHIL # (test code = BA#) 0.05 x10 3/uL 0.0-0.2 N NUCLEATED RBC # (test code = 0.00 x10 3/uL 0.0-0.1 N NRBC#) MANUAL DIFF REQUIRED (test code NO = MDIFF) - CT CHEST W/O [id number] 17:22:00 Name: FERNANDO DAMON [facility] : 1975 Age/S: 44 / M [address] [place] [address] Unit #: [id number] Loc: [place] [address] Phys: Amanda Cramer MD Acct: [id number] Dis Date: Status: [facility] PHONE #: [phone] Exam Date: 09/10/2019 583 FAX #: [phone] Reason: R91.1,SOLITARY PULMONARY NODULE EXAMS: CPT CODE: [id number] CT CHEST W/O CONTRAST [address] without contrast: Multiplanar helical imaging performed through the chest without IV contrast. CT imaging performed at this location utilizes radiation dose optimization techniques which include one or more of the following: -Automated exposure control -Adjustment of the mA and/or kV according to patient size -Use of iterative reconstruction technique CT Radiation Dose DLP 219 mGy-cm HISTORY: Solitary pulmonary nodule. COMPARISON: 11/01/2018 and 05/06/2011 CTA chest FINDINGS: Stable bronchiectatic changes in each lung, mostly upper lobe. No consolidation or pleural fluid. Stable 4 mm nodule in the anterior right lower lobe near the fissure (series 2, image 74). No other lung nodule. Normal caliber thoracic aorta without aneurysm. Stable extensive coronary artery calcification. No mediastinal adenopathy. Limited images through the upper aspect of the abdomen are unremarkable. Review on bone window shows no acute bony abnormality. IMPRESSION: 1. Stable exam without acute process. 2. Bronchiectatic changes in each upper lobe and 4 mm nodule in the anterior right lower lobe are unchanged from November 01, 2018 SL: [id number] at 1722 Reported and signed by: Dominik Hogan M.D. PAGE 1 Signed Report (CONTINUED) Name: FERNANDO DAMON [facility] : 1975 Age/S: 44 / M [address] [place] [address] Blvd Unit #: [id number] Loc: [place] [address] Phys: Amanda Cramer MD Acct: [id number] Dis Date: Status: REG CLI PHONE #: [phone] Exam Date: 09/10/2019 1655 FAX #: [phone] Reason: R91.1,SOLITARY PULMONARY NODULE EXAMS: CPT CODE: [id number] CT CHEST W/O CONTRAST 22286 (Continued) CC: Kristopher Marcial MD; Amanda Cramer MD Technologist:Corky Olsen, RT(R)(CT) CTDI: DLP: Trnscb Date/Time: 09/10/2019 (1721) t.SDR.ETG Orig Print D/T: S: 09/10/2019 (1724) PAGE2 Signed ReportCOMPREHENSIVE METABOLIC [id number] 15:21:00 Test Item Value Reference Range Interpretation Comments SODIUM (test code = NA) mEq/L 134-147 POTASSIUM (test code = K) mEq/L 3.4-5.0 CHLORIDE (test code = CL) mEq/L 100-108 CARBON DIOXIDE (test code = CO2) mEq/L 21-33 ANION GAP (test code = GAP) 0-20 GLUCOSE (test code = GLU) mg/dL 70-110 BLOOD UREA NITROGEN (test code = mg/dL 7-18 BUN) GLOMERULAR FILTRATION RATE (test 95-105 code = GFR) CREATININE (test code = CREAT) mg/dL 0.6-1.3 TOTAL PROTEIN (test code = PROT) g/dL 6.4-8.2 ALBUMIN (test code = ALB) g/dL 3.4-5.0 CALCIUM (test code = CA) mg/dL 8.0-10.5 BILIRUBIN TOTAL (test code = BILT) MG/DL <1.5 SGOT/AST (test code = AST) IUnit/L 15-37 SGPT/ALT (test code = ALT) IUnit/L 15-65 ALKALINE PHOSPHATASE TOTAL (test IUnit/L 20-125 code = ALKP) [id number] 15:21:00 Test Item Value Reference Range Interpretation Comments LIPASE (test code = LIP) IUnit/L 73-393 [id number] 15:21:00 Test Item Value Reference Range Interpretation Comments TROPONIN-I 0.043 ng/mL 0.000-0.045 N Negative: <= 0. 045 Positive: (test code = >= 0.046 Correl ation with TROPI) serial results, other cardiac markers andclin ical findings is necessary to determine the clinicalsignifi cance of this result. Results using different metho dologies should not be c omparedto one another as lisandro titative results may hunter y by method. COMPREHENSIVE METABOLIC [id number] 15:21:00 Test Item Value Reference Range Interpretation Comments SODIUM (test code = NA) 136 mEq/L 134-147 N POTASSIUM (test code = 3.9 mEq/L 3.4-5.0 N K) CHLORIDE (test code = 106 mEq/L 100-108 N CL) CARBON DIOXIDE (test 23 mEq/L 21-33 N code = CO2) ANION GAP (test code = 11 0-20 N GAP) GLUCOSE (test code = 101 mg/dL 70-110 N GLU) BLOOD UREA NITROGEN 25 mg/dL 7-18 H (test code = BUN) GLOMERULAR FILTRATION 81.9 95-105 L Units of measure = RATE (test code = GFR) ml/mi n/1.73 m2 CREATININE (test code = 1.0 mg/dL 0.6-1.3 N CREAT) TOTAL PROTEIN (test 7.6 g/dL 6.4-8.2 N code = PROT) ALBUMIN (test code = 4.00 g/dL 3.4-5.0 N ALB) CALCIUM (test code = 9.0 mg/dL 8.0-10.5 N CA) BILIRUBIN TOTAL (test 0.4 MG/DL <1.5 N code = BILT) SGOT/AST (test code = 31 IUnit/L 15-37 N AST) SGPT/ALT (test code = 31 IUnit/L 15-65 N ALT) ALKALINE PHOSPHATASE 75 IUnit/L 20-125 N TOTAL (test code = ALKP) [id number] 15:21:00 Test Item Value Reference Range Interpretation Comments LIPASE (test code = LIP) 164 IUnit/L 73-393 N [id number] 15:21:00 Test Item Value Reference Range Interpretation Comments TROPONIN-I 0.043 ng/mL 0.000-0.045 N Negative: <= 0. 045 Positive: (test code = >= 0.046 Correl ation with TROPI) serial results, other cardiac markers andclin ical findings is necessary to determine the clinicalsignifi cance of this result. Results using different metho dologies should not be c omparedto one another as lisandro titative results may hunter y by method. CBC W/AUTO [id number] 15:14:00 Test Item Value Reference Range Interpretation Comments WHITE BLOOD CELL (test code = 6.82 x10 3/uL 4.5-11.0 N WBC) RED BLOOD CELL (test code = 5.03 x10 6/uL 4.00-5.60 N RBC) HEMOGLOBIN (test code = HGB) 15.5 g/dL 12.5-16.9 N HEMATOCRIT (test code = HCT) 46.4 % 37.5-50.7 N MEAN CELL VOLUME (test code = 92.2 fL 81.0-99.0 N MCV) MEAN CELL HGB (test code = MCH) 30.8 pg 27.0-33.0 N MEAN CELL HGB CONCETRATION 33.4 g/dL 33.0-37.0 N (test code = MCHC) RED CELL DISTRIBUTION WIDTH CV 13.4 % 11.5-14.5 N (test code = RDW) RED CELL DISTRIBUTION WIDTH SD 45.3 fL 37.0-54.0 N (test code = RDW-SD) PLATELET COUNT (test code = 200 x10 3/uL 150-400 N PLT) MEAN PLATELET VOLUME (test code 9.8 fL 7.0-9.0 H = MPV) NEUTROPHIL % (test code = NT%) 49.0 % 56.0-77.0 L IMMATURE GRANULOCYTE % (test 0.3 % 0.0-2.0 N code = IG%) LYMPHOCYTE % (test code = LY%) 38.9 % 14.0-32.0 H MONOCYTE % (test code = MO%) 9.5 % 4.8-9.0 H EOSINOPHIL % (test code = EO%) 1.3 % 0.3-3.7 N BASOPHIL % (test code = BA%) 1.0 % 0.0-2.0 N NUCLEATED RBC % (test code = 0.0 % 0-0 N NRBC%) NEUTROPHIL # (test code = NT#) 3.34 x10 3/uL 2.0-7.6 N IMMATURE GRANULOCYTE # (test 0.02 x10 3/uL 0.00-0.03 N code = IG#) LYMPHOCYTE # (test code = LY#) 2.65 x10 3/uL 1.0-3.8 N MONOCYTE # (test code = MO#) 0.65 x10 3/uL 0.1-0.8 N EOSINOPHIL # (test code = EO#) 0.09 x10 3/uL 0.0-0.2 N BASOPHIL # (test code = BA#) 0.07 x10 3/uL 0.0-0.2 N NUCLEATED RBC # (test code = 0.00 x10 3/uL 0.0-0.1 N NRBC#) MANUAL DIFF REQUIRED (test code NO = MDIFF) [id number] 15:12:00 Test Item Value Reference Range Interpretation Comments D-DIMER (test 215 ng/mlFEU <=500 N THROMBOSIS AND /OR PULMONARY code = EMBOLISM AND TH E CLINICAL DDIMER) CUT- OFF VALUE FOR EXCLUSION (500 ng/mL FEU) OF THESE CONDITIONSIS VA LIDATED BY THE MANUFACTURE R OF THE METHOD. A NEGAT KATHARINE D-DIMER RESULT WHEN COM BINED WITH A CLINICALASSESSM ENT OF LOW PRETEST PROBABI LITY HAS BEEN SHOWN TO HAVEA HIGH NEGATIVE PREDICTIVE VALU E OF DVT OR PE. D-DIMER TYLER UES >500 ng/mL FEU ARE N OT DIAGNOSTIC FOR DVT, PEor D IC WITHOUT OTHER CONFIRMAT ORY TESTS AND APPROPRIATECLIN ICAL EUALUATIONS. URINALYSIS [id number] 15:05:00 Test Item Value Reference Range Interpretation Comments UA COLOR (test code = COLU) STRAW YEL/STRAW UA APPEARANCE (test code = CLEAR CLEAR APPU) UA GLUCOSE DIPSTICK (test NEGATIVE NEGATIVE code = DGLUU) UA BILIRUBIN DIPSTICK (test NEGATIVE NEGATIVE code = BILU) UA KETONE DIPSTICK (test NEGATIVE NEGATIVE code = KETU) UA SPECIFIC GRAVITY (test 1.012 1.005-1.030 N code = SGU) UA BLOOD DIPSTICK (test NEGATIVE NEGATIVE code = ERI) UA PH DIPSTICK (test code = 6.0 5.0-7.0 N EILEEN) UA PROTEIN DIPSTICK (test NEGATIVE NEGATIVE code = PROU) UA UROBILINIOGEN DIPSTICK 0.2 mg/dL 0.2-1.0 (test code = URO) UA NITRITE DIPSTICK (test NEGATIVE NEGATIVE code = JAX) UA LEUKOCYTE ESTERASE NEGATIVE NEGATIVE DIPSTICK (test code = LEUU) UA RBC (test code = RBCU) 0-3 RBC/HPF 0-3 UA WBC NO REFLEX (test code NONE SEEN WBC/HPF 0-3 = WBCUCL) UA BACTERIA (test code = NONE SEEN /HPF NONE SEEN BACU) UA SQUAMOUS CELLS (test NONE SEEN /HPF NONE SEEN code = SQU) UA MUCUS (test code = MUCU) TRACE /LPF NONE SEEN - XR CHEST 1 [id number] 15:01:00 FAX: Kristopher Valenzuela MD [phone] [place]: St: REG FAX: Jc Zheng MD [phone] -- Name: FERNANDO DAMON [facility] [place] : 1975 Age/S: 43/M [address] [place] [address] Unit #: [id number] Loc: [place] [address] Phys: Jc Capellan MD Acct: [id number] Dis Date: Status: REG ER PHONE #: Exam Date: 04/04/2019 1456 FAX #: [phone] Reason: Chest Pain EXAMS: CPT CODE: [id number] XR CHEST 1 V 17241 CHEST RADIOGRAPH ONE VIEW 04/04/2019 AT 1456 HOURS. CLINICAL HISTORY: Chest pain. COMPARISON STUDIES: Chest one view 12/08/[address] from 11/01/2018. FINDINGS: One view ofthe chest was obtained. The lungs are clear. There are no pleural effusions. Top normal size cardiacsilhouette. No pneumothorax or pneumomediastinum. Remote plate and screw fixation of the left mid clavicular body is noted to be correlated with history. No destructive bone lesions. IMPRESSION: 1. Noacute findings. 2. Remote left clavicular fracture fixation. SL: TR-H at 1501 Reported and signed by: Gus Castellano M.D. CC: Kristopher Marcial MD; Jc Capellan MD Technologist: RT Anisa(R) Trnscrd Date/Time/By: 04/04/2019 (1508) : By: [email or web address] Orig Print D/T: S: 04/04/2019 (7970) PAGE 1 Signed ReportBASIC METABOLIC [id number] 06:04:00 Test Item Value Reference Range Interpretation Comments SODIUM (test code = NA) 140 mEq/L 134-147 N POTASSIUM (test code = 3.9 mEq/L 3.4-5.0 N K) CHLORIDE (test code = 107 mEq/L 100-108 N CL) CARBON DIOXIDE (test 28 mEq/L 21-33 N code = CO2) ANION GAP (test code = 9 0-20 N GAP) GLUCOSE (test code = 98 mg/dL 70-110 N GLU) BLOOD UREA NITROGEN 12 mg/dL 7-18 (test code = BUN) GLOMERULAR FILTRATION 81.9 95-105 L Units of measure = RATE (test code = GFR) ml/mi n/1.73 m2 CREATININE (test code = 1.0 mg/dL 0.6-1.3 N CREAT) CALCIUM (test code = 8.8 mg/dL 8.0-10.5 N CA) BASIC METABOLIC [id number] 04:41:00 Test Item Value Reference Range Interpretation Comments SODIUM (test code = NA) 140 mEq/L 134-147 N POTASSIUM (test code = 4.1 mEq/L 3.4-5.0 N K) CHLORIDE (test code = 106 mEq/L 100-108 N CL) CARBON DIOXIDE (test 30 mEq/L 21-33 N code = CO2) ANION GAP (test code = 8 0-20 N GAP) GLUCOSE (test code = 99 mg/dL 70-110 N GLU) BLOOD UREA NITROGEN 17 mg/dL 7-18 N (test code = BUN) GLOMERULAR FILTRATION 66.4 95-105 L Units of measure = RATE (test code = GFR) ml/mi n/1.73 m2 CREATININE (test code = 1.2 mg/dL 0.6-1.3 N CREAT) CALCIUM (test code = 8.7 mg/dL 8.0-10.5 N CA) [id number] 04:41:00 Test Item Value Reference Range Interpretation Comments PHOSPHOROUS (test code = PHOS) 4.8 MG/DL 2.5-4.9 N [id number] 04:41:00 Test Item Value Reference Range Interpretation Comments MAGNESIUM (test code = MAG) 2.20 mg/dL 1.8-2.4 N CBC W/AUTO [id number] 04:28:00 Test Item Value Reference Range Interpretation Comments WHITE BLOOD CELL (test code = 7.23 x10 3/uL 4.5-11.0 N WBC) RED BLOOD CELL (test code = 4.86 x10 6/uL 4.00-5.60 N RBC) HEMOGLOBIN (test code = HGB) 15.8 g/dL 12.5-16.9 N HEMATOCRIT (test code = HCT) 47.5 % 37.5-50.7 N MEAN CELL VOLUME (test code = 97.7 fL 81.0-99.0 N MCV) MEAN CELL HGB (test code = MCH) 32.5 pg 27.0-33.0 N MEAN CELL HGB CONCETRATION 33.3 g/dL 33.0-37.0 N (test code = MCHC) RED CELL DISTRIBUTION WIDTH CV 12.4 % 11.5-14.5 N (test code = RDW) RED CELL DISTRIBUTION WIDTH SD 44.5 fL 37.0-54.0 N (test code = RDW-SD) PLATELET COUNT (test code = 199 x10 3/uL 150-400 N PLT) MEAN PLATELET VOLUME (test code 9.8 fL 7.0-9.0 H = MPV) NEUTROPHIL % (test code = NT%) 61.4 % 56.0-77.0 N IMMATURE GRANULOCYTE % (test 0.3 % 0.0-2.0 N code = IG%) LYMPHOCYTE % (test code = LY%) 25.0 % 14.0-32.0 N MONOCYTE % (test code = MO%) 11.3 % 4.8-9.0 H EOSINOPHIL % (test code = EO%) 1.4 % 0.3-3.7 N BASOPHIL % (test code = BA%) 0.6 % 0.0-2.0 N NUCLEATED RBC % (test code = 0.0 % 0-0 N NRBC%) NEUTROPHIL # (test code = NT#) 4.44 x10 3/uL 2.0-7.6 N IMMATURE GRANULOCYTE # (test 0.02 x10 3/uL 0.00-0.03 N code = IG#) LYMPHOCYTE # (test code = LY#) 1.81 x10 3/uL 1.0-3.8 N MONOCYTE # (test code = MO#) 0.82 x10 3/uL 0.1-0.8 H EOSINOPHIL # (test code = EO#) 0.10 x10 3/uL 0.0-0.2 N BASOPHIL # (test code = BA#) 0.04 x10 3/uL 0.0-0.2 N NUCLEATED RBC # (test code = 0.00 x10 3/uL 0.0-0.1 N NRBC#) MANUAL DIFF REQUIRED (test code NO = MDIFF) THROMBOPLASTIN TIME [id number] 10:14:00 Test Item Value Reference Range Interpretation Comments THROMBOPLASTIN TIME 65.9 Seconds 25.0-39.5 H Therape utic Range: PARTIAL (test code = 50.4 - 88.3 Seconds PTT) Effective 07/03/2018 [id number] 04:02:00 Test Item Value Reference Range Interpretation Comments CKMB (test code = 2.0 ng/mL 0-5.0 N CUT OFF:>5 ng/mL is CKMBT) suggested as be ing consistent with AMI. [id number] 04:02:00 Test Item Value Reference Range Interpretation Comments TROPONIN-I 0.335 ng/mL 0.000-0.045 HH Negative: <= 0 .045 Positive: (test code = >= 0.046 Corre lation with TROPI) serial results, other cardiac markers andclin ical findings is necessary to determine the clinicalsignifi cance of this result. Results using different metho dologies should not be c omparedto one another as lisandro titative results may hunter y by method. BASIC METABOLIC [id number] 03:53:00 Test Item Value Reference Range Interpretation Comments SODIUM (test code = NA) 140 mEq/L 134-147 N POTASSIUM (test code = 4.2 mEq/L 3.4-5.0 N K) CHLORIDE (test code = 110 mEq/L 100-108 H CL) CARBON DIOXIDE (test 25 mEq/L 21-33 N code = CO2) ANION GAP (test code = 9 0-20 N GAP) GLUCOSE (test code = 103 mg/dL 70-110 GLU) BLOOD UREA NITROGEN 14 mg/dL 7-18 N (test code = BUN) GLOMERULAR FILTRATION 73.4 95-105 L Units of measure = RATE (test code = GFR) ml/mi n/1.73 m2 CREATININE (test code = 1.1 mg/dL 0.6-1.3 N CREAT) CALCIUM (test code = 8.4 mg/dL 8.0-10.5 N CA) THROMBOPLASTIN TIME [id number] 03:42:00 Test Item Value Reference Range Interpretation Comments THROMBOPLASTIN TIME 64.5 Seconds 25.0-39.5 H Therape utic Range: PARTIAL (test code = 50.4 - 88.3 Seconds PTT) Effective 07/03/2018 CBC W/AUTO [id number] 03:31:00 Test Item Value Reference Range Interpretation Comments WHITE BLOOD CELL (test code = 5.95 x10 3/uL 4.5-11.0 N WBC) RED BLOOD CELL (test code = 4.75 x10 6/uL 4.00-5.60 N RBC) HEMOGLOBIN (test code = HGB) 15.4 g/dL 12.5-16.9 N HEMATOCRIT (test code = HCT) 45.8 % 37.5-50.7 N MEAN CELL VOLUME (test code = 96.4 fL 81.0-99.0 N MCV) MEAN CELL HGB (test code = MCH) 32.4 pg 27.0-33.0 N MEAN CELL HGB CONCETRATION 33.6 g/dL 33.0-37.0 N (test code = MCHC) RED CELL DISTRIBUTION WIDTH CV 12.5 % 11.5-14.5 N (test code = RDW) RED CELL DISTRIBUTION WIDTH SD 44.7 fL 37.0-54.0 N (test code = RDW-SD) PLATELET COUNT (test code = 191 x10 3/uL 150-400 N PLT) MEAN PLATELET VOLUME (test code 9.9 fL 7.0-9.0 H = MPV) NEUTROPHIL % (test code = NT%) 46.2 % 56.0-77.0 L IMMATURE GRANULOCYTE % (test 0.3 % 0.0-2.0 N code = IG%) LYMPHOCYTE % (test code = LY%) 39.7 % 14.0-32.0 H MONOCYTE % (test code = MO%) 10.4 % 4.8-9.0 H EOSINOPHIL % (test code = EO%) 2.4 % 0.3-3.7 N BASOPHIL % (test code = BA%) 1.0 % 0.0-2.0 N NUCLEATED RBC % (test code = 0.0 % 0-0 N NRBC%) NEUTROPHIL # (test code = NT#) 2.75 x10 3/uL 2.0-7.6 N IMMATURE GRANULOCYTE # (test 0.02 x10 3/uL 0.00-0.03 N code = IG#) LYMPHOCYTE # (test code = LY#) 2.36 x10 3/uL 1.0-3.8 N MONOCYTE # (test code = MO#) 0.62 x10 3/uL 0.1-0.8 N EOSINOPHIL # (test code = EO#) 0.14 x10 3/uL 0.0-0.2 N BASOPHIL # (test code = BA#) 0.06 x10 3/uL 0.0-0.2 N NUCLEATED RBC # (test code = 0.00 x10 3/uL 0.0-0.1 N NRBC#) MANUAL DIFF REQUIRED (test code NO = MDIFF) THROMBOPLASTIN TIME [id number] 20:56:00 Test Item Value Reference Range Interpretation Comments THROMBOPLASTIN TIME 52.2 Seconds 25.0-39.5 H Therape utic Range: PARTIAL (test code = 50.4 - 88.3 Seconds PTT) Effective 07/03/2018 THROMBOPLASTIN TIME [id number] 15:06:00 Test Item Value Reference Range Interpretation Comments THROMBOPLASTIN TIME 55.3 Seconds 25.0-39.5 H Therape utic Range: PARTIAL (test code = 50.4 - 88.3 Seconds PTT) Effective 07/03/2018 [id number] 10:53:00 Test Item Value Reference Range Interpretation Comments TROPONIN-I 0.559 ng/mL 0.000-0.045 HH Negative: <= 0 .045 Positive: (test code = >= 0.046 Correl ation with TROPI) serial results, other cardiac markers andclin ical findings is necessary to determine the clinicalsignifi cance of this result. Results using different metho dologies should not be c omparedto one another as lisandro titative results may hunter y by method. COMMENTS: 3 troponins total (including troponin done in ED)- DUP VEIN SELENE 2018-12-09 10:36:00 Name: FERNANDO DAMON [facility] [place] : 1975 Age/S: 43 / M [address] [place] [address] Blvd Unit #: [id number] Loc: [place] [address] Phys: Jaquelin Torres Acct: [id number] Dis Date: Status: ADM IN PHONE #: [phone] Exam Date: 12/09/2018926 FAX #: [phone] Reason: r/o dvt EXAMS: CPT CODE: [id number] DUP VEIN SELENE 64468 PROCEDURE: BILATERAL LOWER EXTREMITY VENOUS ULTRASOUND INDICATION: Left leg pain COMPARISON: None. TECHNIQUE: Sonographic evaluation of the bilateral lower extremity veins was performed using high resolution B-mode, pulse and color Doppler imaging. FINDINGS: RIGHT: The common femoral, femoral, popliteal and visualized calf veins are patent. Normal venous waveforms. The saphenofemoral junction is unremarkable. LEFT: The common femoral, femoral, popliteal and visualized calf veins are patent. Normal venous waveforms. The saphenofemoral junction is unremarkable. IMPRESSION: No deep venous thrombosis. SL: [id number] at 1036 Reported and signed by: Chris Phillips M.D. CC: Kristopher Marcial MD; Sandip Desai MD; Jaquelin QUILES Technologist: Geeta Dejesus RDMS(BR)(AB) Trn scb Date/Time: 12/09/2018 (1036) [email or web address] Orig Print D/T: S: 12/09/2018 (1039) Probe: PAGE 1 Signed Report- DUP EXTRACRANIAL [id number] 10:35:00 Name: FERNANDO DAMON [facility] : 1975 Age/S: 43 / M [address] [place] [address] Unit #: [id number] Loc: [place] [address] Phys: Jaquelin Torres Acct: [id number] Dis Date: Status: ADM IN PHONE #: [phone] Exam Date: 12/09/2018926 FAX #: [phone] Reason: syncope EXAMS: CPT CODE: [id number] DUP EXTRACRANIAL SELENE 87738 BILATERAL CAROTID ULTRASOUND HISTORY: Syncope TECHNIQ UE: Vines-scale, color Doppler and spectral Doppler of the carotid arteries was performed. Any reported ICA stenoses indirectly reference the distal internal carotid diameter as the denominator for stenosis measurement, utilizing consensus panel criteria. RIGHT: There is no significant carotid plaque ICA PSV 113 cm/sec CCA PSV 105 cm/sec ICA/CCA ratio 0.9 Vertebral flow is antegrade. LEFT: There is no significant carotid plaque. ICA PSV 97 cm/sec CCA PSV 99 cm/sec ICA/CCA ratio 1.0 Vertebral flow isantegrade. IMPRESSION: 1. RIGHT: No significant carotid plaque. 2. LEFT: No significant carotid plaque. End Impression Consensus panel Doppler US criteria for diagnosis of ICA stenosis. Stenosis (%) ICA PSV (cm/sec) ICA/CCA ratio <50 <125 <2.0 50- 69 125-230 2.0-4.0 >70 but less than >230 >4.0 near occlusion Near occlusion High, low, or Variable undetectable SL: [id number] PAGE 1 Signed Report (CONTINUED) Name: FERNANDO DAMON [facility] : 1975 Age/S: 43 / M [address] [place] [address] Blvd Unit #: [id number] Loc: [place] [address] Phys: Jaquelin Torres Acct: [id number] Dis Date: Status: ADM IN PHONE #: [phone] Exam Date: 12/09/2018926 FAX #: [phone] Reason: syncope EXAMS: CPT CODE: [id number] DUP EXTRACRANIAL SELENE 09712 (Continued) at 1035 Reported and signed by: Chris Phillips M.D. CC: Kristopher Marcial MD; Sandip Desai MD; Jaquelin QUILES Technologist: Geeta Dejesus RDMS(TERE)(AB) Trnscb Date/Time: 12/09/2018 (1036) [id number] Orig Print D/T: S: 12/09/2018 (1038) Probe: PAGE 2 Signed ReportCBC W/AUTO [id number] 08:33:00 Test Item Value Reference Range Interpretation Comments WHITE BLOOD CELL (test code = 5.23 x10 3/uL 4.5-11.0 N WBC) RED BLOOD CELL (test code = 4.63 x10 6/uL 4.00-5.60 N RBC) HEMOGLOBIN (test code = HGB) 14.6 g/dL 12.5-16.9 N HEMATOCRIT (test code = HCT) 44.5 % 37.5-50.7 N MEAN CELL VOLUME (test code = 96.1 fL 81.0-99.0 N MCV) MEAN CELL HGB (test code = MCH) 31.5 pg 27.0-33.0 N MEAN CELL HGB CONCETRATION 32.8 g/dL 33.0-37.0 L (test code = MCHC) RED CELL DISTRIBUTION WIDTH CV 12.8 % 11.5-14.5 N (test code = RDW) RED CELL DISTRIBUTION WIDTH SD 45.7 fL 37.0-54.0 N (test code = RDW-SD) PLATELET COUNT (test code = 182 x10 3/uL 150-400 N PLT) MEAN PLATELET VOLUME (test code 10.0 fL 7.0-9.0 H = MPV) NEUTROPHIL % (test code = NT%) 44.9 % 56.0-77.0 L IMMATURE GRANULOCYTE % (test 0.2 % 0.0-2.0 N code = IG%) LYMPHOCYTE % (test code = LY%) 45.3 % 14.0-32.0 H MONOCYTE % (test code = MO%) 6.7 % 4.8-9.0 N EOSINOPHIL % (test code = EO%) 2.1 % 0.3-3.7 N BASOPHIL % (test code = BA%) 0.8 % 0.0-2.0 N NUCLEATED RBC % (test code = 0.0 % 0-0 N NRBC%) NEUTROPHIL # (test code = NT#) 2.35 x10 3/uL 2.0-7.6 N IMMATURE GRANULOCYTE # (test 0.01 x10 3/uL 0.00-0.03 N code = IG#) LYMPHOCYTE # (test code = LY#) 2.37 x10 3/uL 1.0-3.8 N MONOCYTE # (test code = MO#) 0.35 x10 3/uL 0.1-0.8 N EOSINOPHIL # (test code = EO#) 0.11 x10 3/uL 0.0-0.2 N BASOPHIL # (test code = BA#) 0.04 x10 3/uL 0.0-0.2 N NUCLEATED RBC # (test code = 0.00 x10 3/uL 0.0-0.1 N NRBC#) MANUAL DIFF REQUIRED (test code NO = MDIFF) BASIC METABOLIC [id number] 07:43:00 Test Item Value Reference Range Interpretation Comments SODIUM (test code = NA) 140 mEq/L 134-147 N POTASSIUM (test code = 3.5 mEq/L 3.4-5.0 N K) CHLORIDE (test code = 109 mEq/L 100-108 H CL) CARBON DIOXIDE (test 24 mEq/L 21-33 N code = CO2) ANION GAP (test code = 11 0-20 N GAP) GLUCOSE (test code = 169 mg/dL 70-110 H GLU) BLOOD UREA NITROGEN 17 mg/dL 7-18 N (test code = BUN) GLOMERULAR FILTRATION 81.9 95-105 L Units of measure = RATE (test code = GFR) ml/mi n/1.73 m2 CREATININE (test code = 1.0 mg/dL 0.6-1.3 N CREAT) CALCIUM (test code = 8.4 mg/dL 8.0-10.5 N CA) [id number] 07:43:00 Test Item Value Reference Range Interpretation Comments MAGNESIUM (test code = MAG) 2.00 mg/dL 1.8-2.4 N THROMBOPLASTIN TIME [id number] 07:42:00 Test Item Value Reference Range Interpretation Comments THROMBOPLASTIN TIME 85.7 Seconds 25.0-39.5 H Therape utic Range: PARTIAL (test code = 50.4 - 88.3 Seconds PTT) Effective 07/03/2018 COMMENTS: HE[facility]IN CARDIOLOGY [id number] 05:48:00 Test Item Value Reference Range Interpretation Comments D-DIMER (test < 215 ng/mlFEU <=500 N THROMBOSIS A ND/OR PULMONARY code = EMBOLISM AND E CLINICAL DDIMER) CUT- OFF VALUE FOR EXCLUSION (500 ng/mL FEU) OF THESE CONDIT IONSIS VALIDATED BY E CHOCOLATE FINISHER OF THE METHOD. A NEGATIVE D-DI YUMI RESULT WHEN COMBINED W ITH A CLINICALASSESSM ENT OF LOW PRETEST PROBABI LITY HAS BEEN SHOWN TO H AVEA HIGH NEGATIVE PREDIC TIVE VALUE OF DVT OR PE. D -DIMER VALUES >500 ng/ mL FEU ARE NOT DIAGNOSTIC FOR DVT, PEor DIC WITHOU T OTHER CONFIRMATORY TE STS AND APPROPRIATECLIN ICAL EUALUATIONS. [id number] 03:55:00 Test Item Value Reference Range Interpretation Comments TROPONIN-I 0.639 ng/mL 0.000-0.045 HH Negative: <= 0 .045 Positive: (test code = >= 0.046 Correl ation with TROPI) serial results, other cardiac markers andclin ical findings is necessary to determine the clinicalsignifi cance of this result. Results using different metho dologies should not be c omparedto one another as lisandro titative results may hunter y by method. COMMENTS: 3 troponins total (including troponin done in ED)DRUGS OF ABUSE SCREEN [id number] 00:32:00 Test Item Value Reference Range Interpretation Comments URN COCAINE (test code NEGATIVE NEGATIVE = COCAURN) URN CANNABINOIDS (test POSITIVE NEGATIVE A code = CANNABURN) URN AMPHETAMINE (test NEGATIVE NEGATIVE code = AMPHETURN) URN BARBITURATE (test NEGATIVE NEGATIVE code = BARBITURN) URN BENZODIAZEPINE NEGATIVE NEGATIVE Cut-off v alue:200 (test code = BENZOURN) ng/mL URN OPIATES (test code NEGATIVE NEGATIVE Cut-o ff value:2000 = OPIATURN) ng/mL URN PHENCYCLIDINE (PCP) NEGATIVE NEGATIVE Cuto ffs:Barbiturates (test code = PHENCURN) 200 ng/mLBenzodiaze pines 200 ng/mLTHC Cannabinoids 50 ng/mLOpiates(Mo rphine) 2000 ng/mLAmphe tamine 1000 ng/mLCocai ne 300 ng/mLPCP phency clidine 25 ng/mL Unconf irmed screening resul ts shouldnot be us ed for non-medical pur poses. LIPOPROTEIN [id number] 00:26:00 Test Item Value Reference Range Interpretation Comments LIPOPROTEIN LDL 120 mg/dL 0-100 H <100 OPTIMAL 100-129 NEAR (test code = LDL) OPTIMAL/AB OVE [id number] HIGH>QL=695 MADELEINE Y HIGH*Guidelines provided by the National Cholesterol EducationProa Adult Treatment Panel III DRUGS OF ABUSE SCREEN [id number] 00:24:00 Test Item Value Reference Range Interpretation Comments URN COCAINE (test code NEGATIVE NEGATIVE = COCAURN) URN CANNABINOIDS (test NEGATIVE code = CANNABURN) URN AMPHETAMINE (test NEGATIVE NEGATIVE code = AMPHETURN) URN BARBITURATE (test NEGATIVE NEGATIVE code = BARBITURN) URN BENZODIAZEPINE NEGATIVE NEGATIVE Cut-off v alue:200 (test code = BENZOURN) ng/mL URN OPIATES (test code NEGATIVE NEGATIVE Cut-o ff value:2000 = OPIATURN) ng/mL URN PHENCYCLIDINE (PCP) NEGATIVE NEGATIVE Cuto ffs:Barbiturates (test code = PHENCURN) 200 ng/mLBenzodiaze pines 200 ng/mLTHC Cannabinoids 50 ng/mLOpiates(Mo rphine) 2000 ng/mLAmphe tamine 1000 ng/mLCocai ne 300 ng/mLPCP phency clidine 25 ng/mL Unconf irmed screening resul ts shouldnot be us ed for non-medical pur poses. URINALYSIS [id number] 00:10:00 Test Item Value Reference Range Interpretation Comments UA COLOR (test code = COLU) YELLOW YEL/STRAW UA APPEARANCE (test code = CLEAR CLEAR APPU) UA GLUCOSE DIPSTICK (test code NEGATIVE NEGATIVE = DGLUU) UA BILIRUBIN DIPSTICK (test NEGATIVE NEGATIVE code = BILU) UA KETONE DIPSTICK (test code NEGATIVE NEGATIVE = KETU) UA SPECIFIC GRAVITY (test code 1.021 1.005-1.030 N = SGU) UA BLOOD DIPSTICK (test code = NEGATIVE NEGATIVE ERI) UA PH DIPSTICK (test code = 6.0 5.0-7.0 N EILEEN) UA PROTEIN DIPSTICK (test code NEGATIVE NEGATIVE = PROU) UA UROBILINIOGEN DIPSTICK 0.2 mg/dL 0.2-1.0 (test code = URO) UA NITRITE DIPSTICK (test code NEGATIVE NEGATIVE = JAX) UA LEUKOCYTE ESTERASE DIPSTICK NEGATIVE NEGATIVE (test code = LEUU) UA RBC (test code = RBCU) 0-3 RBC/HPF 0-3 UA WBC NO REFLEX (test code = 0-3 WBC/HPF 0-3 WBCUCL) UA BACTERIA (test code = BACU) NONE SEEN /HPF NONE SEEN UA SQUAMOUS CELLS (test code = NONE SEEN /HPF NONE SEEN SQU) UA MUCUS (test code = MUCU) TRACE /LPF NONE SEEN THYROID STIMULATING [id number] 00:01:00 Test Item Value Reference Range Interpretation Comments THYROID STIMULATING 1.54 0.42-5.47 N Results in HORMONE (test code = TSH) mi lli-International Units/mL [id number] 00:01:00 Test Item Value Reference Range Interpretation Comments TROPONIN-I 0.723 ng/mL 0.000-0.045 HH Negative: <= 0 .045 Positive: (test code = >= 0.046 Correl ation with TROPI) serial results, other cardiac markers andclin ical findings is necessary to determine the clinicalsignifi cance of this result. Results using different metho dologies should not be c omparedto one another as lisandro titative results may hunter y by method. BASIC METABOLIC [id number] 00:01:00 Test Item Value Reference Range Interpretation Comments SODIUM (test code = NA) 141 mEq/L 134-147 N POTASSIUM (test code = 3.5 mEq/L 3.4-5.0 N K) CHLORIDE (test code = 108 mEq/L 100-108 N CL) CARBON DIOXIDE (test 27 mEq/L 21-33 N code = CO2) ANION GAP (test code = 10 0-20 N GAP) GLUCOSE (test code = 87 mg/dL 70-110 N GLU) BLOOD UREA NITROGEN 21 mg/dL 7-18 H (test code = BUN) GLOMERULAR FILTRATION 73.4 95-105 L Units of measure = RATE (test code = GFR) ml/mi n/1.73 m2 CREATININE (test code = 1.1 mg/dL 0.6-1.3 N CREAT) CALCIUM (test code = 8.9 mg/dL 8.0-10.5 N CA) HEPATIC FUNCTION [id number] 00:01:00 Test Item Value Reference Range Interpretation Comments TOTAL PROTEIN (test code = PROT) 7.3 g/dL 6.4-8.2 N ALBUMIN (test code = ALB) 3.90 g/dL 3.4-5.0 N BILIRUBIN TOTAL (test code = BILT) 0.5 MG/DL <1.5 N BILIRUBIN DIRECT (test code = 0.10 MG/DL 0.0-0.30 N BILD) BILIRUBIN INDIRECT (test code = 0.40 MG/DL BILIND) SGOT/AST (test code = AST) 23 IUnit/L 15-37 N SGPT/ALT (test code = ALT) 37 IUnit/L 15-65 N ALKALINE PHOSPHATASE TOTAL (test 81 IUnit/L 20-125 N code = ALKP) [id number] 00:01:00 Test Item Value Reference Range Interpretation Comments LIPASE (test code = LIP) 244 IUnit/L 73-393 N [id number] 00:01:00 Test Item Value Reference Range Interpretation Comments MAGNESIUM (test code = MAG) 2.30 mg/dL 1.8-2.4 N B-TYPE NATRIURETIC [id number] 23:59:00 Test Item Value Reference Range Interpretation Comments B-TYPE NATRIURETIC PEPTIDE (test 77.0 PG/ML 0-100 N code = BNP) BASIC METABOLIC [id number] 23:58:00 Test Item Value Reference Range Interpretation Comments SODIUM (test code = NA) 141 mEq/L 134-147 N POTASSIUM (test code = 3.5 mEq/L 3.4-5.0 N K) CHLORIDE (test code = 108 mEq/L 100-108 N CL) CARBON DIOXIDE (test 27 mEq/L 21-33 N code = CO2) ANION GAP (test code = 10 0-20 N GAP) GLUCOSE (test code = 87 mg/dL 70-110 N GLU) BLOOD UREA NITROGEN 21 mg/dL 7-18 H (test code = BUN) GLOMERULAR FILTRATION 73.4 95-105 L Units of measure = RATE (test code = GFR) ml/mi n/1.73 m2 CREATININE (test code = 1.1 mg/dL 0.6-1.3 N CREAT) CALCIUM (test code = 8.9 mg/dL 8.0-10.5 N CA) HEPATIC FUNCTION [id number] 23:58:00 Test Item Value Reference Range Interpretation Comments TOTAL PROTEIN (test code = PROT) 7.3 g/dL 6.4-8.2 N ALBUMIN (test code = ALB) 3.90 g/dL 3.4-5.0 N BILIRUBIN TOTAL (test code = BILT) 0.5 MG/DL <1.5 N BILIRUBIN DIRECT (test code = 0.10 MG/DL 0.0-0.30 N BILD) BILIRUBIN INDIRECT (test code = 0.40 MG/DL BILIND) SGOT/AST (test code = AST) 23 IUnit/L 15-37 N SGPT/ALT (test code = ALT) 37 IUnit/L 15-65 N ALKALINE PHOSPHATASE TOTAL (test 81 IUnit/L 20-125 N code = ALKP) [id number] 23:58:00 Test Item Value Reference Range Interpretation Comments LIPASE (test code = LIP) 244 IUnit/L 73-393 N [id number] 23:58:00 Test Item Value Reference Range Interpretation Comments MAGNESIUM (test code = MAG) 2.30 mg/dL 1.8-2.4 N THYROID STIMULATING [id number] 23:58:00 Test Item Value Reference Range Interpretation Comments THYROID STIMULATING HORMONE (test code 0.42-5.47 = TSH) [id number] 23:58:00 Test Item Value Reference Range Interpretation Comments TROPONIN-I 0.723 ng/mL 0.000-0.045 HH Negative: <= 0 .045 Positive: (test code = >= 0.046 Correl ation with TROPI) serial results, other cardiac markers andclin ical findings is necessary to determine the clinicalsignifi cance of this result. Results using different metho dologies should not be c omparedto one another as lisandro titative results may hunter y by method. - CT HEAD/BRAIN W/O [id number] 23:47:00 Name: FERNANDO DAMON [facility] : 1975 Age/S: 43 / M [address] [place] [address] Unit #: [id number] Loc: [place] [address] Phys: Sina Adams MD Acct: [id number] Dis Date: Status: REG ER PHONE #: [phone] Exam Date: 12/08/2018 2337 FAX #: [phone] Reason: SYNCOPE AND COLLAPSE EXAMS: CPT CODE: [id number] CT HEAD/BRAIN W/O CONT 20433 CT HEAD WITHOUT CONTRAST INDICATION: Syncope today. Collapse. COMPARISON: None. TECHNIQUE: Noncontrast CT head was performed from skull base to vertex at 3 mm slice collimation. Coronal and sagittal reconstructions performed. DOSE: CT imaging performed at this location utilizes radiation dose optimization technique which includes one or more of the followin) Automated exposure control; 2) Adjustment of the mA and/or kV according to patient's size; 3) Use of iterative reconstruction techniques. DLP: 419 mGy-cm FINDINGS: BRAIN PARENCHYMA AND VENTRICLES: Vines-white matter differentiation is preserved. Ventricles are normal in size. Nomass effect or midline shift. No extra-axial fluid collections. No acute intraparenchymal hemorrhage. Posterior fossa and midline structures appear normal. ORBITS, PARANASAL SINUSES, AND MASTOIDS: Visualized portions of the paranasal sinuses and mastoid air cells are clear. SKULL: Calvarium is intact.IMPRESSION: No acute intracranial findings. SL: SG-H at 2347 Reported and signed by: Jaden Escoto M.D. CC: Kristopher Marcial MD;Sina Adams MD Technologist:Vinh Aguirre, RT(R)(CT); Ros CTDI: DLP: Trnscb Date/Time: 12/08/2018 (2347) [email or web address] Orig Print D/T: S: 12/08/2018 (5825) PAGE 1 Signed ReportPROTHROMBIN [id number] 23:40:00 Test Item Value Reference Range Interpretation Comments PROTHROMBIN TIME 11.5 SECONDS 9.3-12.9 N PATIENT (test code = PTP) INTERNATIONAL NORMAL 1.1 0.8-1.2 N TARGET INR BY RATIO (test code = INDICATIO N Indication INR) INR1. Prophylax is of venous thrombos is 2.0 - 3.0 (orthoped ic surgery), Proph ylaxis of venous throm bosis (other than hig h-risk surgery), Treat ment of Deep Vein Thrombosis/Pulm onary Embolism, Preve ntion of systemic emb olism - Tissue heart va lves, Acute Myocardia l Infarction (to prevent systemic emboli sm), Valvular heart disease, Atrial Fibrillation, Bileaflet mecha nical valve in aortic position.2. Mec hanical prosthetic valv es (high risk), 2. 5 - 3.5 Presence of Lup us Anticoagulant o r Antiphospholipi d Antibodies, Pre vention of systemic emb olism - Acute Myocardia l Infarction (to prevent recurrent infar ct). THROMBOPLASTIN TIME [id number] 23:40:00 Test Item Value Reference Range Interpretation Comments THROMBOPLASTIN TIME 37.2 Seconds 25.0-39.5 N Therape utic Range: PARTIAL (test code = 50.4 - 88.3 Seconds PTT) Effective 07/03/2018 - XR CHEST 1 [id number] 23:35:00 FAX: Kristopher Valenzuela MD [phone] [place]: St: REG FAX: Sina Glover MD [phone] -- Name: FERNANDO DAMON [facility] : 1975 Age/S: 43/M [address] [place] [address] Blvd Unit #: [id number] Loc: [place], [place] [address] Phys: Sina Adams MD Acct: [id number] Dis Date: Status: REG ER PHONE #: Exam Date: 12/08/2018 2320 FAX #: [phone] Reason: Chest Pain EXAMS: CPT CODE: [id number] XR CHEST 1 V 84383 Portable single view AP chest. INDICATION: Chest pain. Syncope today. Comparison: 11/01/2018 chest radiograph FINDINGS: The cardiomediastinal silhouette is normal in size. Lungs are clear. Costophrenic angles are sharp. Left clavicle hardware present. IMPRESSION: No evidence for acute cardiopulmonary disease. SL: BLANCA-H at 2335 Reported and signed by: Jaden Escoto M.D. CC: Kristopher Marcial MD; Sina Adams MD Technologist: Autumn Durbin RT(R) Trnscrd Date/Time/By: 12/08/2018 (4641) : By: [email or web address] Orig Print D/T: S: 12/08/2018 (4526) PAGE 1 Signed ReportCBC W/AUTO DIFF 2018-12-08 23:33:00 Test Item Value Reference Range Interpretation Comments WHITE BLOOD CELL (test code = 7.81 x10 3/uL 4.5-11.0 N WBC) RED BLOOD CELL (test code = 5.00 x10 6/uL 4.00-5.60 N RBC) HEMOGLOBIN (test code = HGB) 16.1 g/dL 12.5-16.9 N HEMATOCRIT (test code = HCT) 48.4 % 37.5-50.7 N MEAN CELL VOLUME (test code = 96.8 fL 81.0-99.0 N MCV) MEAN CELL HGB (test code = MCH) 32.2 pg 27.0-33.0 N MEAN CELL HGB CONCETRATION 33.3 g/dL 33.0-37.0 N (test code = MCHC) RED CELL DISTRIBUTION WIDTH CV 12.8 % 11.5-14.5 N (test code = RDW) RED CELL DISTRIBUTION WIDTH SD 45.7 fL 37.0-54.0 N (test code = RDW-SD) PLATELET COUNT (test code = 212 x10 3/uL 150-400 N PLT) MEAN PLATELET VOLUME (test code 9.8 fL 7.0-9.0 H = MPV) NEUTROPHIL % (test code = NT%) 52.4 % 56.0-77.0 L IMMATURE GRANULOCYTE % (test 0.3 % 0.0-2.0 N code = IG%) LYMPHOCYTE % (test code = LY%) 35.5 % 14.0-32.0 H MONOCYTE % (test code = MO%) 9.7 % 4.8-9.0 H EOSINOPHIL % (test code = EO%) 1.5 % 0.3-3.7 N BASOPHIL % (test code = BA%) 0.6 % 0.0-2.0 N NUCLEATED RBC % (test code = 0.0 % 0-0 N NRBC%) NEUTROPHIL # (test code = NT#) 4.09 x10 3/uL 2.0-7.6 N IMMATURE GRANULOCYTE # (test 0.02 x10 3/uL 0.00-0.03 N code = IG#) LYMPHOCYTE # (test code = LY#) 2.77 x10 3/uL 1.0-3.8 N MONOCYTE # (test code = MO#) 0.76 x10 3/uL 0.1-0.8 N EOSINOPHIL # (test code = EO#) 0.12 x10 3/uL 0.0-0.2 N BASOPHIL # (test code = BA#) 0.05 x10 3/uL 0.0-0.2 N NUCLEATED RBC # (test code = 0.00 x10 3/uL 0.0-0.1 N NRBC#) MANUAL DIFF REQUIRED (test code NO = MDIFF) BASIC METABOLIC [id number] 06:16:00 Test Item Value Reference Range Interpretation Comments SODIUM (test code = NA) 137 mEq/L 134-147 N POTASSIUM (test code = 4.0 mEq/L 3.4-5.0 N K) CHLORIDE (test code = 103 mEq/L 100-108 N CL) CARBON DIOXIDE (test 30 mEq/L 21-33 N code = CO2) ANION GAP (test code = 8 0-20 N GAP) GLUCOSE (test code = 110 mg/dL 70-110 N GLU) BLOOD UREA NITROGEN 17 mg/dL 7-18 N (test code = BUN) GLOMERULAR FILTRATION 66.4 95-105 L Units of measure = RATE (test code = GFR) ml/mi n/1.73 m2 CREATININE (test code = 1.2 mg/dL 0.6-1.3 N CREAT) CALCIUM (test code = 8.9 mg/dL 8.0-10.5 N CA) [id number] 06:16:00 Test Item Value Reference Range Interpretation Comments CKMB (test code = 9.8 ng/mL 0-5.0 HH CUT OFF:> 5 ng/mL is CKMBT) suggested as be ing consistent with AMI. [id number] 06:16:00 Test Item Value Reference Range Interpretation Comments TROPONIN-I 13.000 ng/mL 0.000-0.045 HH Negative: <= 0 .045 (test code = Positive: >= 0. 046 TROPI) Correlation wit h serial results, other cardiac markers andclin ical findings is necessary to determine the clinicalsig nificance of this result. Re sults using different metho dologies should not be c omparedto one another as lisandro titative results may hunter y by method. CBC W/AUTO [id number] 05:39:00 Test Item Value Reference Range Interpretation Comments WHITE BLOOD CELL (test code = 11.92 x10 3/uL 4.5-11.0 H WBC) RED BLOOD CELL (test code = 4.87 x10 6/uL 4.00-5.60 N RBC) HEMOGLOBIN (test code = HGB) 15.6 g/dL 12.5-16.9 N HEMATOCRIT (test code = HCT) 47.8 % 37.5-50.7 N MEAN CELL VOLUME (test code = 98.2 fL 81.0-99.0 N MCV) MEAN CELL HGB (test code = 32.0 pg 27.0-33.0 N MCH) MEAN CELL HGB CONCETRATION 32.6 g/dL 33.0-37.0 L (test code = MCHC) RED CELL DISTRIBUTION WIDTH CV 13.1 % 11.5-14.5 N (test code = RDW) RED CELL DISTRIBUTION WIDTH SD 47.7 fL 37.0-54.0 N (test code = RDW-SD) PLATELET COUNT (test code = 151 x10 3/uL 150-400 N PLT) MEAN PLATELET VOLUME (test 10.2 fL 7.0-9.0 H code = MPV) NEUTROPHIL % (test code = NT%) 67.5 % 56.0-77.0 N IMMATURE GRANULOCYTE % (test 0.6 % 0.0-2.0 N code = IG%) LYMPHOCYTE % (test code = LY%) 17.7 % 14.0-32.0 N MONOCYTE % (test code = MO%) 13.2 % 4.8-9.0 H EOSINOPHIL % (test code = EO%) 0.6 % 0.3-3.7 N BASOPHIL % (test code = BA%) 0.4 % 0.0-2.0 N NUCLEATED RBC % (test code = 0.0 % 0-0 N NRBC%) NEUTROPHIL # (test code = NT#) 8.05 x10 3/uL 2.0-7.6 H IMMATURE GRANULOCYTE # (test 0.07 x10 3/uL 0.00-0.03 H code = IG#) LYMPHOCYTE # (test code = LY#) 2.11 x10 3/uL 1.0-3.8 N MONOCYTE # (test code = MO#) 1.57 x10 3/uL 0.1-0.8 H EOSINOPHIL # (test code = EO#) 0.07 x10 3/uL 0.0-0.2 N BASOPHIL # (test code = BA#) 0.05 x10 3/uL 0.0-0.2 N NUCLEATED RBC # (test code = 0.00 x10 3/uL 0.0-0.1 N NRBC#) MANUAL DIFF REQUIRED (test NO code = MDIFF) - US EXTREM NON VASC [id number] 11:42:00 Name: FERNANDO DAMON [facility] : 1975 Age/S: 43 / M [address] [place] [address] Bl Unit #: [id number] Loc: [place] [address] Phys: Richard Marcial MD Acct: [id number] Dis Date: Status: ADM IN PHONE #: [phone] Exam Date: 11/03/2018 1127 FAX #: [phone] Reason: BILATERAL USG OFGROINS, SP STENTS UNDER IMPELL EXAMS: CPT CODE: [id number] US EXTREM NON VASC COMP 11836 Patient: FERNANDO DAMON. : 1975; Age: 43 years; Gender: Male. MR: [id number]. Ordering physician: Richard Marcial MD. COMPLETE NONVASCULAR EXTREMITY ULTRASOUND. HISTORY: Recent vascular access set bilateral groin for stent placement. Bilateral groin pain. COMPARISON: None. FINDINGS: Grayscale and color Doppler ultrasound examination of bilateral groin was performed. No evidence of abnormal fluid collection to suggest postprocedural seroma or hematoma. No evidence of pseudoaneurysm. No soft tissue emphysema. IMPRESSION: Unremarkable bilateral groin. SL: [id number] at 1142 Reported and signed by: Kimo Duffy M.D. CC: Richard Marcial MD; Kristopher Marcial MD; Tripp Cox MD Technologist: Donna Crabtree RDMS(OB)(AB) Trnscb Date/Time: 11/03/2018 (1142) tJUAN FSL7 Orig Print D/T: S: 11/03/2018 (9937) Probe: PAGE 1 Signed [id number] 09:06:00 Test Item Value Reference Range Interpretation Comments GLUBED (test code = 93 MG/DL 70-110 N Performe d by certified GLUBED) calender machine operator at [facility] BASIC METABOLIC [id number] 07:08:00 Test Item Value Reference Range Interpretation Comments SODIUM (test code = NA) 137 mEq/L 134-147 N POTASSIUM (test code = 4.1 mEq/L 3.4-5.0 N K) CHLORIDE (test code = 104 mEq/L 100-108 N CL) CARBON DIOXIDE (test 27 mEq/L 21-33 N code = CO2) ANION GAP (test code = 10 0-20 N GAP) GLUCOSE (test code = 99 mg/dL 70-110 N GLU) BLOOD UREA NITROGEN 15 mg/dL 7-18 N (test code = BUN) GLOMERULAR FILTRATION 73.4 95-105 L Units of measure = RATE (test code = GFR) ml/mi n/1.73 m2 CREATININE (test code = 1.1 mg/dL 0.6-1.3 N CREAT) CALCIUM (test code = 8.5 mg/dL 8.0-10.5 N CA) COMMENTS: To be done morning of Heart CathCBC W/AUTO [id number] 05:35:00 Test Item Value Reference Range Interpretation Comments WHITE BLOOD CELL (test code = 11.20 x10 3/uL 4.5-11.0 H WBC) RED BLOOD CELL (test code = 5.23 x10 6/uL 4.00-5.60 N RBC) HEMOGLOBIN (test code = HGB) 16.6 g/dL 12.5-16.9 N HEMATOCRIT (test code = HCT) 51.2 % 37.5-50.7 H MEAN CELL VOLUME (test code = 97.9 fL 81.0-99.0 N MCV) MEAN CELL HGB (test code = 31.7 pg 27.0-33.0 N MCH) MEAN CELL HGB CONCETRATION 32.4 g/dL 33.0-37.0 L (test code = MCHC) RED CELL DISTRIBUTION WIDTH CV 13.3 % 11.5-14.5 N (test code = RDW) RED CELL DISTRIBUTION WIDTH SD 48.8 fL 37.0-54.0 N (test code = RDW-SD) PLATELET COUNT (test code = 151 x10 3/uL 150-400 N PLT) MEAN PLATELET VOLUME (test 10.1 fL 7.0-9.0 H code = MPV) NEUTROPHIL % (test code = NT%) 63.3 % 56.0-77.0 N IMMATURE GRANULOCYTE % (test 0.5 % 0.0-2.0 N code = IG%) LYMPHOCYTE % (test code = LY%) 22.9 % 14.0-32.0 N MONOCYTE % (test code = MO%) 12.5 % 4.8-9.0 H EOSINOPHIL % (test code = EO%) 0.4 % 0.3-3.7 N BASOPHIL % (test code = BA%) 0.4 % 0.0-2.0 N NUCLEATED RBC % (test code = 0.0 % 0-0 N NRBC%) NEUTROPHIL # (test code = NT#) 7.10 x10 3/uL 2.0-7.6 N IMMATURE GRANULOCYTE # (test 0.06 x10 3/uL 0.00-0.03 H code = IG#) LYMPHOCYTE # (test code = LY#) 2.56 x10 3/uL 1.0-3.8 N MONOCYTE # (test code = MO#) 1.40 x10 3/uL 0.1-0.8 H EOSINOPHIL # (test code = EO#) 0.04 x10 3/uL 0.0-0.2 N BASOPHIL # (test code = BA#) 0.04 x10 3/uL 0.0-0.2 N NUCLEATED RBC # (test code = 0.00 x10 3/uL 0.0-0.1 N NRBC#) MANUAL DIFF REQUIRED (test NO code = MDIFF) COMMENTS: To be done morning of Heart [id number] 20:13:00 Test Item Value Reference Range Interpretation Comments ACT-ISTAT (test code 252 SEC 74-137 H Perform ed by certified = ACTI) calender machine operator at [facility] [id number] 20:13:00 Test Item Value Reference Range Interpretation Comments ACT-ISTAT (test code 186 SEC 74-137 H Perform ed by certified = ACTI) calender machine operator at [facility] BASIC METABOLIC [id number] 04:25:00 Test Item Value Reference Range Interpretation Comments SODIUM (test code = NA) 140 mEq/L 134-147 N POTASSIUM (test code = 3.9 mEq/L 3.4-5.0 N K) CHLORIDE (test code = 106 mEq/L 100-108 N CL) CARBON DIOXIDE (test 28 mEq/L 21-33 N code = CO2) ANION GAP (test code = 10 0-20 N GAP) GLUCOSE (test code = 125 mg/dL 70-110 H GLU) BLOOD UREA NITROGEN 20 mg/dL 7-18 H (test code = BUN) GLOMERULAR FILTRATION 73.4 95-105 L Units of measure = RATE (test code = GFR) ml/mi n/1.73 m2 CREATININE (test code = 1.1 mg/dL 0.6-1.3 N CREAT) CALCIUM (test code = 8.4 mg/dL 8.0-10.5 N CA) LIPID PROFILE (CORONARY RISK)2018-11-02 04:25:00 Test Item Value Reference Range Interpretation Comments TRIGLYCERIDES (test 351 mg/dL 40-150 H code = TRIG) CHOLESTEROL (test 237 mg/dL <200 H code = CHOL) CHOLESTEROL/HDL 6.77 RATIO 3.43-4.97 H RISK ASSOCIA MILTON WITH RATIO (test code = CHOL/HDL RATIOS: RISK CHOLHDL) MALE FEMALE1/2 AVERAGE 3.43 3.27AVERAG E 4.97 4.442X AVERAGE 9.55 7.053X AVERAGE 23.39 11.04 NOTE THAT THE REFERENCE VALUE IS RELATEDTO RISK LEVELS RECOMMENDED BY THE NATL.HEART, DOUGLAS G, AND BLOOD INST. HDL CHOLESTEROL 35.0 mg/dL 32-72 N (test code = HDL) LIPOPROTEIN LDL 161 mg/dL 0-100 H <100 OPTIMAL 100-129 (test code = LDL) NEAR OPTIM AL/ABOVE [id number] BGPUIISWVV264-2 89 HIGH>MK=905 MADELEINE Y HIGH*Guidelines provided by the [facility] terol [facility] Adult Treatment Panel III [id number] 04:25:00 Test Item Value Reference Range Interpretation Comments TROPONIN-I 7.660 ng/mL 0.000-0.045 HH Negative: <= 0 .045 Positive: (test code = >= 0.046 Correl ation with TROPI) serial results, other cardiac markers andclin ical findings is necessary to determine the clinicalsignifi cance of this result. Results using different metho dologies should not be c omparedto one another as lisandro titative results may hunter y by method. CBC W/AUTO [id number] 03:55:00 Test Item Value Reference Range Interpretation Comments WHITE BLOOD CELL (test code = 10.88 x10 3/uL 4.5-11.0 N WBC) RED BLOOD CELL (test code = 5.31 x10 6/uL 4.00-5.60 N RBC) HEMOGLOBIN (test code = HGB) 17.0 g/dL 12.5-16.9 H HEMATOCRIT (test code = HCT) 51.3 % 37.5-50.7 H MEAN CELL VOLUME (test code = 96.6 fL 81.0-99.0 N MCV) MEAN CELL HGB (test code = 32.0 pg 27.0-33.0 N MCH) MEAN CELL HGB CONCETRATION 33.1 g/dL 33.0-37.0 N (test code = MCHC) RED CELL DISTRIBUTION WIDTH CV 13.2 % 11.5-14.5 N (test code = RDW) RED CELL DISTRIBUTION WIDTH SD 47.2 fL 37.0-54.0 N (test code = RDW-SD) PLATELET COUNT (test code = 168 x10 3/uL 150-400 N PLT) MEAN PLATELET VOLUME (test 10.1 fL 7.0-9.0 H code = MPV) NEUTROPHIL % (test code = NT%) 60.9 % 56.0-77.0 N IMMATURE GRANULOCYTE % (test 0.5 % 0.0-2.0 N code = IG%) LYMPHOCYTE % (test code = LY%) 27.7 % 14.0-32.0 N MONOCYTE % (test code = MO%) 9.7 % 4.8-9.0 H EOSINOPHIL % (test code = EO%) 0.6 % 0.3-3.7 N BASOPHIL % (test code = BA%) 0.6 % 0.0-2.0 N NUCLEATED RBC % (test code = 0.0 % 0-0 N NRBC%) NEUTROPHIL # (test code = NT#) 6.64 x10 3/uL 2.0-7.6 N IMMATURE GRANULOCYTE # (test 0.05 x10 3/uL 0.00-0.03 H code = IG#) LYMPHOCYTE # (test code = LY#) 3.01 x10 3/uL 1.0-3.8 N MONOCYTE # (test code = MO#) 1.05 x10 3/uL 0.1-0.8 H EOSINOPHIL # (test code = EO#) 0.07 x10 3/uL 0.0-0.2 N BASOPHIL # (test code = BA#) 0.06 x10 3/uL 0.0-0.2 N NUCLEATED RBC # (test code = 0.00 x10 3/uL 0.0-0.1 N NRBC#) MANUAL DIFF REQUIRED (test NO code = MDIFF) TROPONIN-I [id number] 23:48:00 Test Item Value Reference Range Interpretation Comments TROPONIN-I RAPID 0.39 ng/mL 0.00-0.08 HH Performed b y certified (test code = calender machine operator at [facility] TROPIRAP) Ctr Negative: < = 0.08 Positive: >= 0. 09An elevated tropon in value alone is not duarte fficient todiagnose a my ocardial infarction. Rat her, the patient sclinic al presentation (h istory, physical exam) and ECGshould be us ed in conjunction wit h troponin in thediagnosti c evaluation of s uspected myocardial infa rction. Aserial samplin g protocol is recommended to facilitate the identification of temporal changes in trop onin levels characteristic of RI. - CT ANGIO [id number] 22:16:00 Name: FERNANDO DAMON [facility] : 1975 Age/S: 43 / M [address] [place] [address] Blvd Unit #: [id number] Loc: [place] [address] Phys: Sina Adams MD Acct: [id number] Dis Date: Status: REG ER PHONE #: [phone] Exam Date: 11/01/2018 2140 FAX #: [phone] Reason: chest pain, evaluated for aortic dissection EXAMS: CPT CODE: [id number] CT ANGIO CHEST 77330 PROCEDURE: CTA CHEST ABDOMEN AND PELVIS INDICATION: Chest pain COMPARISON: None. TECHNIQUE: CTA of the thoracoabdominal aorta and pelvis was performed. Helical imaging performed apices to the symphysis. Multiplanar and 3-D MIP angiographic reconstructions are reviewed. Precontrast images of the chest obtained as part of a dissection protocol. IV CONTRAST: 100 ml Isovue 300 GI CONTRAST: None. CT imaging performed at this location utilizes radiation dose optimization techniques which include one or more of the following: -Automated exposure control -Adjustment of the mA and/or kV according to patient size -Use of iterativereconstruction technique CT Radiation Dose DLP 1321 mGy-cm FINDINGS: CHEST: AORTA: The thoracic aorta is normal in caliber. There is no thoracic aortic dissection. Great vessel origins show wide patency. There is normal brachiocephalic branching at the thoracic aortic arch. HEART: The cardiac chambers are unremarkable. No pericardial effusion. There are severe proximal LAD coronary artery calcifications. MEDIASTINUM: The mediastinal contents are normal. No adenopathy. No CT evidence for pulmonary embolism. LUNGS: The lungs are clear. 4 mm anterior right lower lobe pulmonary nodule. Mild bronchiectasis with wall thickening extending into the lung apices. No acute alveolar consolidation/pneumonia currently. No pleural abnormality. MUSCULOSKELETAL: Internal fixation hardware noted at the left clavicle. ABDOMEN: AORTA: Normal caliber abdominal aorta. No evidence for dissection. Wide patency of celiac axis, SMA, single bilateral renal arteries, and JAZMÍN. Pelvic runoff vessels are mildly tortuous with no aneurysmal dilatation, flow-limiting stenosis, or dissection. PAGE 1 Signed Report (CONTINUED) Name: FERNANDO DAMON [facility] : 1975 Age/S: 43 / M [address] [place] [address] Blvd Unit #: [id number] Loc: [place] [address] Phys: Sina Adams MD Acct: [id number] Dis Date: Status: REG ER PHONE #: [phone] Exam Date: 11/01/2018 2140 FAX #: [phone] Reason: chest pain, evaluated for aortic dissection EXAMS: CPT CODE: [id number] CT ANGIO CHEST 62580 (Continued) SOLID ORGANS: Survey may be limited by early phase of enhancement. The liver, gallbladder, spleen, pancreas, adrenal glands and kidneys are normal. BOWEL: Colonic diverticulosis, no CT evidence for diverticulitis. Nosmall bowel obstruction. Stomach is unremarkable. The appendix is normal. PERITONEUM: No free intraperitoneal fluid or air. Incidental fat-containing right inguinal hernia. PELVIS: No pelvic mass. The u rinary bladder is normal. MUSCULOSKELETAL: No acute abnormality. IMPRESSION: 1. The exam is negative for aortic aneurysm and dissection. 2. Heavy proximal LAD coronary artery calcification. 3. Mild bronchiectasis and bronchial wall thickening/bronchiolitis at the lung apices bilaterally. 4. 4 mm anterior right lower lobe pulmonary nodule for which additional follow-up is recommended. If the patient has a history of smoking or other risk factor to increase their risk of malignancy, then a follow-upchest CT in 6 months is recommended. If the patient has no such risk factors, then a follow-up chestCT in 12 months is recommended. 5. No acute intra-abdominal abnormality. 6. Colonic diverticulosis, no evidence for diverticulitis. 7. Fat-containing right inguinal hernia. SL: ASHOK Vargas at 2216 Reported and signed by: Adrián Ricardo M.D. PAGE 2 Signed Report (CONTINUED) Name: FERNANDO DAMON [facility] [place] : 1975 Age/S: 43 / M [address] [place] [address] Blvd Unit #: [id number] Loc: [place] [address] Phys: Sina Adams MD Acct: [id number] Dis Date: Status: REG ER PHONE #: [phone] Exam Date: 11/01/20182139 FAX #: [phone] Reason: chest pain, evaluated for aortic dissection EXAMS: CPT CODE: [id number] CT ANGIO CHEST 67868 (Continued) CC: Sina Adams MD Technologist:Magi Vera, RT(R)(CT) CTDI: DLP: Trnscb Date/Time: 11/01/2018 (2215) Carolyn Orig Print D/T: S: 11/01/2018 (2220) PAGE 3 Signed Report- CTA ABD PEL W [id number] 22:16:00 Name: FERNANDO DAMON [facility] : 1975 Age/S: 43 / M [address] [place] [address] Blvd Unit #: [id number] Loc: [place] [address] Phys: Sina Adams MD Acct: [id number] Dis Date: Status: REG ER PHONE #: [phone] Exam Date: 11/01/20182139 FAX #: [phone] Reason: chest pain, evaluated for aortic dissection EXAMS: CPT CODE: [id number] CTA ABD PEL W CONT 85277 PROCEDURE: CTA CHEST ABDOMEN AND PELVIS INDICATION: Chest pain COMPARISON: None. TECHNIQUE: CTA of the thoracoabdominal aorta and pelvis was performed. Helical imaging performed apices to the symphysis. Multiplanar and 3-D MIP angiographic reconstructions are reviewed. Precontrast images of the chest obtained as part of a dissection protocol. IV CONTRAST: 100 ml Isovue 300 GI CONTRAST: None. CT imaging performed at [facility] utilizes radiation dose optimization techniques which include one or more of the following:-Automated exposure control -Adjustment of the mA and/or kV according to patient size -Use of iterative reconstruction technique CT Radiation Dose DLP 1321 mGy-cm FINDINGS: CHEST: AORTA: The thoracic aorta is normal in caliber. There is no thoracic aortic dissection. Great vessel origins show wide patency. There is normal brachiocephalic branching at the thoracic aortic arch. HEART: The cardiac chamb ers are unremarkable. No pericardial effusion. There are severe proximal LAD coronary artery calcifications. MEDIASTINUM: The mediastinal contents are normal. No adenopathy. No CT evidence for pulmonary embolism. LUNGS: The lungs are clear. 4 mm anterior right lower lobe pulmonary nodule. Mild bronchiectasis with wall thickening extending into the lung apices. No acute alveolar consolidation/pneumonia currently. No pleural abnormality. MUSCULOSKELETAL: Internal fixation hardware noted at the left clavicle. ABDOMEN: AORTA: Normal caliber abdominal aorta. No evidence for dissection. Wide patency of celiac axis, SMA, single bilateral renal arteries, and JAZMÍN. Pelvic runoff vessels are mildly tortuouswith no aneurysmal dilatation, flow-limiting stenosis, or dissection. PAGE 1 Signed Report (CONTINUED) Name: FERNANDO DAMON REPLACED BY [facility] [place] : 1975 Age/S: 43 / M [address] [place] [address] Blvd Unit #: [id number] Loc: [place] [address] Phys: Sina Adams MD Acct: [id number] Dis Date: Status: REG ER PHONE #: [phone] Exam Date: 11/01/20182139 FAX #: [phone] Reason: chest pain, evaluated for aortic dissection EXAMS: CPT CODE: [id number] CTA ABD PEL W CONT 08264 (Continued) SOLID ORGANS: Survey may be limited by early phase of enhancement. The liver, gallbladder, spleen, pancreas, adrenal glands and kidneys are normal. BOWEL: Colonic diverticulosis, no CT evidence for diverticulitis. No small bowel obstruction. Stomach is unremarkable. The appendix is normal. PERITONEUM: No freeintraperitoneal fluid or air. Incidental fat-containing right inguinal hernia. PELVIS: No pelvic mass. The urinary bladder is normal. MUSCULOSKELETAL: No acute abnormality. IMPRESSION: 1. The exam is negative for aortic aneurysm and dissection. 2. Heavy proximal LAD coronary artery calcification. 3. Mild bronchiectasis and bronchial wall thickening/bronchiolitis at the lung apices bilaterally. 4. 4 mm anterior right lower lobe pulmonary nodule for which additional follow-up is recommended. If the patient has a history of smoking or other risk factor to increase their risk of malignancy, then a follow-up chest CT in 6 months is recommended. If the patient has no such risk factors, then a follow-upchest CT in 12 months is recommended. 5. No acute intra-abdominal abnormality. 6. Colonic diverticulosis, no evidence for diverticulitis. 7. Fat-containing right inguinal hernia. SL: ASHOK Vargas at 2216 Reported and signed by: Hugo Keys PAGE 2 Signed Report (CONTINUED) Name: FERNANDO DAMON [facility] [place] : 1975 Age/S: 43 / M [address] [place] [address] Blvd Unit #: [id number] Loc: [place] [address] Phys: Sina Adams MD Acct: [id number] Dis Date: Status: REG ER PHONE #: [phone] Exam Date: FAX #: [phone] Reason: chest pain, evaluated for aortic dissection EXAMS: CPT CODE: [id number] CTA ABD PEL W CONT 56945 (Continued) CC: Sina Adams MD Technologist:Magi Vera, RT(R)(CT) CTDI: DLP: Trnscb Date/Time: 11/01/2018 (2215) tLUKAS Orig Print D/T: S: 11/01/2018 (2220) PAGE 3Signed ReportLIPOPROTEIN [id number] 21:33:00 Test Item Value Reference Range Interpretation Comments LIPOPROTEIN LDL 191 mg/dL 0-100 H <100 OPTIMAL 100-129 NEAR (test code = LDL) OPTIMAL/AB OVE [id number] HIGH>CO=992 MADELEINE Y HIGH*Guidelines provided by the National Cholesterol EducationProgra m Adult Treatment Panel III DRUGS OF ABUSE SCREEN [id number] 21:28:00 Test Item Value Reference Range Interpretation Comments URN COCAINE (test code POSITIVE NEGATIVE A = COCAURN) URN CANNABINOIDS (test NEGATIVE NEGATIVE code = CANNABURN) URN AMPHETAMINE (test NEGATIVE NEGATIVE code = AMPHETURN) URN BARBITURATE (test NEGATIVE NEGATIVE code = BARBITURN) URN BENZODIAZEPINE NEGATIVE NEGATIVE Cut-off v alue:200 (test code = BENZOURN) ng/mL URN OPIATES (test code NEGATIVE NEGATIVE Cut-o ff value:2000 = OPIATURN) ng/mL URN PHENCYCLIDINE (PCP) NEGATIVE NEGATIVE Cuto ffs:Barbiturates (test code = PHENCURN) 200 ng/mLBenzodiaze pines 200 ng/mLTHC Cannabinoids 50 ng/mLOpiates(Mo rphine) 2000 ng/mLAmphe tamine 1000 ng/mLCocai ne 300 ng/mLPCP phency clidine 25 ng/mL Unconf irmed screening resul ts shouldnot be us ed for non-medical pur poses. - XR CHEST 2 [id number] 21:19:00 FAX: Sina Glover MD [phone] [place]: St: PRE Name: FERNANDO DAMON [facility] : 1975 Age/S: 43/M [address] [place] [address] Unit #: [id number] Loc: [address] [address] Phys: Sina Adams MD Acct: [id number] Dis Date: Status: PRE ER PHONE #: [phone] Exam Date: 11/01/20182110 FAX #: [phone] Reason: Chest Pain EXAMS: CPT CODE: [id number] XR CHEST 2 V 06169 CHEST TWO VIEW HISTORY: Chest pain. Comparison made to prior chest x-ray dated 05/06/11. FINDINGS: The lungs are clear. The heart size and pulmonary vascularity are normal. Bony thorax shows no acute abnormality. Previous internal fixation of a left clavicle fracture. IMPRESSION: No active process. SL:01 at 2118 Reported and signed by: Hugo Keys CC: Sina Adams MD Technologist: Leonel Hagen RT(R) Trnscrd Date/Time/By: 11/01/2018 (2118) : By: Carolyn Orig Print D/T: S: 11/01/2018 (2122) PAGE 1 Signed ReportDRUGS OF ABUSE SCREEN [id number] 21:18:00 Test Item Value Reference Range Interpretation Comments URN COCAINE (test code NEGATIVE = COCAURN) URN CANNABINOIDS (test NEGATIVE NEGATIVE code = CANNABURN) URN AMPHETAMINE (test NEGATIVE NEGATIVE code = AMPHETURN) URN BARBITURATE (test NEGATIVE NEGATIVE code = BARBITURN) URN BENZODIAZEPINE NEGATIVE NEGATIVE Cut-off v alue:200 (test code = BENZOURN) ng/mL URN OPIATES (test code NEGATIVE NEGATIVE Cut-o ff value:2000 = OPIATURN) ng/mL URN PHENCYCLIDINE (PCP) NEGATIVE NEGATIVE Cuto ffs:Barbiturates (test code = PHENCURN) 200 ng/mLBenzodiaze pines 200 ng/mLTHC Cannabinoids 50 ng/mLOpiates(Mo rphine) 2000 ng/mLAmphe tamine 1000 ng/mLCocai ne 300 ng/mLPCP phency clidine 25 ng/mL Unconf irmed screening resul ts shouldnot be us ed for non-medical pur poses. B-TYPE NATRIURETIC [id number] 21:17:00 Test Item Value Reference Range Interpretation Comments B-TYPE NATRIURETIC PEPTIDE (test 8.2 PG/ML 0-100 N code = BNP) BASIC METABOLIC [id number] 21:14:00 Test Item Value Reference Range Interpretation Comments SODIUM (test code = NA) 139 mEq/L 134-147 N POTASSIUM (test code = 3.8 mEq/L 3.4-5.0 N K) CHLORIDE (test code = 103 mEq/L 100-108 N CL) CARBON DIOXIDE (test 33 mEq/L 21-33 N code = CO2) ANION GAP (test code = 7 0-20 N GAP) GLUCOSE (test code = 116 mg/dL 70-110 H GLU) BLOOD UREA NITROGEN 20 mg/dL 7-18 H (test code = BUN) GLOMERULAR FILTRATION 60.5 95-105 L Units of measure = RATE (test code = GFR) ml/mi n/1.73 m2 CREATININE (test code = 1.3 mg/dL 0.6-1.3 N CREAT) CALCIUM (test code = 9.5 mg/dL 8.0-10.5 N CA) HEPATIC FUNCTION [id number] 21:14:00 Test Item Value Reference Range Interpretation Comments TOTAL PROTEIN (test code = PROT) 8.0 g/dL 6.4-8.2 N ALBUMIN (test code = ALB) 4.20 g/dL 3.4-5.0 N BILIRUBIN TOTAL (test code = BILT) 0.50 mg/dL 0.0-1.0 N BILIRUBIN DIRECT (test code = 0.10 MG/DL 0.0-0.30 N BILD) BILIRUBIN INDIRECT (test code = 0.40 MG/DL BILIND) SGOT/AST (test code = AST) 28 IUnit/L 15-37 N SGPT/ALT (test code = ALT) 37 IUnit/L 15-65 N ALKALINE PHOSPHATASE TOTAL (test 74 IUnit/L 20-125 N code = ALKP) [id number] 21:14:00 Test Item Value Reference Range Interpretation Comments LIPASE (test code = LIP) 201 IUnit/L 73-393 N THYROID STIMULATING [id number] 21:14:00 Test Item Value Reference Range Interpretation Comments THYROID STIMULATING 2.54 0.42-5.47 N Results in HORMONE (test code = TSH) mi lli-International Units/mL [id number] 21:14:00 Test Item Value Reference Range Interpretation Comments TROPONIN-I 0.273 ng/mL 0.000-0.045 HH Negative: <= 0 .045 Positive: (test code = >= 0.046 Correl ation with TROPI) serial results, other cardiac markers andclin ical findings is necessary to determine the clinicalsignifi cance of this result. Results using different metho dologies should not be c omparedto one another as lisandro titative results may hunter y by method. PROTHROMBIN [id number] 20:57:00 Test Item Value Reference Range Interpretation Comments PROTHROMBIN TIME 10.9 SECONDS 9.3-12.9 N PATIENT (test code = PTP) INTERNATIONAL NORMAL 1.0 0.8-1.2 N TARGET INR BY RATIO (test code = INDICATIO N Indication INR) INR1. Prophylax is of venous thrombos is 2.0 - 3.0 (orthoped ic surgery), Proph ylaxis of venous throm bosis (other than hig h-risk surgery), Treat ment of Deep Vein Thrombosis/Pulm onary Embolism, Preve ntion of systemic emb olism - Tissue heart va lves, Acute Myocardia l Infarction (to prevent systemic emboli sm), Valvular heart disease, Atrial Fibrillation, Bileaflet mecha nical valve in aortic position.2. Mec hanical prosthetic valv es (high risk), 2. 5 - 3.5 Presence of Lup us Anticoagulant o r Antiphospholipi d Antibodies, Pre vention of systemic emb olism - Acute Myocardia l Infarction (to prevent recurrent infar ct). CBC W/AUTO [id number] 20:47:00 Test Item Value Reference Range Interpretation Comments WHITE BLOOD CELL (test code = 11.69 x10 3/uL 4.5-11.0 H WBC) RED BLOOD CELL (test code = 5.91 x10 6/uL 4.00-5.60 H RBC) HEMOGLOBIN (test code = HGB) 19.1 g/dL 12.5-16.9 H HEMATOCRIT (test code = HCT) 56.8 % 37.5-50.7 H MEAN CELL VOLUME (test code = 96.1 fL 81.0-99.0 N MCV) MEAN CELL HGB (test code = 32.3 pg 27.0-33.0 N MCH) MEAN CELL HGB CONCETRATION 33.6 g/dL 33.0-37.0 N (test code = MCHC) RED CELL DISTRIBUTION WIDTH CV 13.1 % 11.5-14.5 N (test code = RDW) RED CELL DISTRIBUTION WIDTH SD 47.5 fL 37.0-54.0 N (test code = RDW-SD) PLATELET COUNT (test code = 200 x10 3/uL 150-400 N PLT) MEAN PLATELET VOLUME (test 9.8 fL 7.0-9.0 H code = MPV) NEUTROPHIL % (test code = NT%) 56.7 % 56.0-77.0 N IMMATURE GRANULOCYTE % (test 0.3 % 0.0-2.0 N code = IG%) LYMPHOCYTE % (test code = LY%) 32.5 % 14.0-32.0 H MONOCYTE % (test code = MO%) 9.2 % 4.8-9.0 H EOSINOPHIL % (test code = EO%) 0.7 % 0.3-3.7 N BASOPHIL % (test code = BA%) 0.6 % 0.0-2.0 N NUCLEATED RBC % (test code = 0.0 % 0-0 N NRBC%) NEUTROPHIL # (test code = NT#) 6.63 x10 3/uL 2.0-7.6 N IMMATURE GRANULOCYTE # (test 0.04 x10 3/uL 0.00-0.03 H code = IG#) LYMPHOCYTE # (test code = LY#) 3.80 x10 3/uL 1.0-3.8 N MONOCYTE # (test code = MO#) 1.07 x10 3/uL 0.1-0.8 H EOSINOPHIL # (test code = EO#) 0.08 x10 3/uL 0.0-0.2 N BASOPHIL # (test code = BA#) 0.07 x10 3/uL 0.0-0.2 N NUCLEATED RBC # (test code = 0.00 x10 3/uL 0.0-0.1 N NRBC#) MANUAL DIFF REQUIRED (test NO code = MDIFF)
--- NOTE | 2022-12-25 12:05 | RAD REPORT ---
EXAM DESCRIPTION: RAD - Foot Right 3 View - 12/25/2022 11:51 am CLINICAL HISTORY: Pain;Swelling COMPARISON: No comparisons FINDINGS/IMPRESSION: Essentially nondisplaced transversely oriented fracture of the second metatarsa l proximal diaphysis. Partially imaged hardware in the distal fibula with secondary degenerative man ges at the ankle
[2022-12-25] MEDS ORDERED: HYDROCODONE/APAP 10/325 TAB ONE (12:15)
[2022-12-25] MEDS ORDERED: IBUPROFEN 400 MG TAB ONE (12:15)
--- NOTE | 2022-12-25 12:39 | ER ---
Nurse's Notes [facility] Name: Fernando Damon Age: 47 yrs Sex: Male : 1975 Arrival Date: 12/25/2022 Time: 11:19 Bed 20 Private MD: Diagnosis: Sprain of foot;Nondisplaced fracture of second metatarsal bone, right foot, initial encounter for closed fracture Presentation: 12/25 11:32 Chief complaint: Patient states: R ankle injury last night while trying to do a flip on ll1 a trampoline. Coronavirus screen: Vaccine status: Patient reports being unvaccinated. Client denies travel out of the [place] in the last 14 days. At this time, the client does not indicate any symptoms associated with coronavirus-19. Ebola Screen: Patient denies travel to an Ebola-affected area in the 21 days before illness onset. Initial Sepsis Screen: Does the patient meet any 2 criteria? HR > 90 bpm. No. Patient's initial sepsis screen is negative. Does the patient have a suspected source of infection? Yes: Bone or joint infection. Risk Assessment: Do you want to hurt yourself or someone else? Patient reports no desire to harm self or others. Onset of symptoms was December 24, 2022. 11:32 Method Of Arrival: Wheelchair ll1 11:32 Acuity: ELLA 4 ll1 Historical: - Allergies: 11:31 PENICILLINS; ll1 11:31 Naproxen; ll1 - PMHx: 11:31 blood thinner; ll1 - PSHx: 11:31 10 heart stents; lacerated liver; ll1 11:32 ankle SX x 2, shoulder SX x 2; ll1 - Immunization history:: Adult Immunizations up to date. - Social history:: Smoking status: Patient denies any tobacco usage or history of. Screenin:32 [facility] ED Fall Risk Assessment (Adult) History of falling in the last 3 months, ph including since admission No falls in past 3 months (0 pts) Impaired Gait Yes (1 pt) Score/Fall Risk Level 0 - 2 = Low Risk. Abuse screen: Denies threats or abuse. Denies injuries from another. Nutritional screening: No deficits noted. Tuberculosis screening: No symptoms or risk factors identified. Assessment: 12:31 General: Appears in no apparent distress. uncomfortable, Behavior is cooperative, ph appropriate for age. Pain: Complains of pain in right foot. Neuro: Level of Consciousness is awake, alert, obeys commands, Oriented to person, place, time, situation. Cardiovascular: Capillary refill < 3 seconds in bilateral fingers Patient's skin is warm and dry. Respiratory: Airway is patent Respiratory effort is even, unlabored. Musculoskeletal: Swelling present in right foot. Vital Signs: 11:32 BP 143 / 87; Pulse 94; Resp 18; Temp 97.5; Pulse Ox 96% on R/A; Weight 86.18 kg; Height ll1 5 ft. 10 in. ; Pain 10/10; 11:32 Body Mass Index 27.26 (86.18 kg, 177.8 cm) ll1 11:32 Pain Scale: Adult ll1 ED Course: 11:21 Patient arrived in ED. rg4 11:24 Lida Carmona FNP-C is [facility]. kb 11:24 Alexandro Mancilla MD is Attending Physician. kb 11:31 Arm band placed on Patient placed in an exam room, on a stretcher. ll1 11:34 Triage completed. ll1 11:39 Autumn Veliz RN is Primary Nurse. ph 11:50 Foot Right 3 View XRAY In Process Unspecified. EDMS 12:30 No provider procedures requiring assistance completed. ph 12:32 Patient has correct armband on for positive identification. Bed in low position. Call ph light in reach. 12:33 Patient did not have IV access during this emergency room visit. ph Administered Medications: 12:29 Drug: Ibuprofen PO 800 mg PO once Route: PO; ph 12:30 Drug: Irmo PO 10 mg-325 mg 1 tabs PO once Route: PO; ph Medication: 12:32 VIS not applicable for this client. ph Outcome: 12:39 Discharge ordered by . kb 13:09 Patient left the ED. hb 13:09 Discharged to home with crutches, with significant other, ph 13:09 Condition: good 13:09 Discharge instructions given to patient, Instructed on discharge instructions, follow up and referral plans. medication usage, Demonstrated understanding of instructions, follow-up care, medications, crutch walking, Signatures: Dispatcher [employer] EDMS Lida Carmona FNP-C FNP-Autumn Mayorga RN RN ph Fe Fine RN RN hb Ashwini Taveras rg4 Socrates Viramontes, RN RN ll1
--- NOTE | 2022-12-25 12:40 | EDPHYS ---
Physician Documentation [facility] Name: Fernando Damon Age: 47 yrs Sex: Male : 1975 Arrival Date: 12/25/2022 Time: 11:19 Bed 20 Private MD: ED Physician Alexandro Mancilla HPI: 12/25 12:36 This 47 yrs old Male presents to ER via Wheelchair with complaints of Ankle Injury. kb 12:37 The patient presents with an injury, pain, swelling, tenderness. The complaints affect kb the dorsum of right foot. Context: The problem was sustained at home, resulted from the patient falling, the patient is not able to ambulate. Onset: The symptoms/episode began/occurred yesterday. Modifying factors: The symptoms are alleviated by nothing, the symptoms are aggravated by weight bearing, movement. Associated signs and symptoms: Pertinent positives: swelling, Pertinent negatives: calf tenderness, fever, nausea, numbness, rash, tingling, vomiting, warmth, weakness. Severity of symptoms: At their worst the symptoms were moderate, in the emergency department the symptoms are unchanged. The patient has not experienced similar symptoms in the past. The patient has not recently seen a physician. Pt reports he was showing the kids how to do a flip last night and fell causing pain and swelling to right foot. Historical: - Allergies: 11:31 PENICILLINS; ll1 11:31 Naproxen; ll1 - PMHx: 11:31 blood thinner; ll1 - PSHx: 11:31 10 heart stents; lacerated liver; ll1 11:32 ankle SX x 2, shoulder SX x 2; ll1 - Immunization history:: Adult Immunizations up to date. - Social history:: Smoking status: Patient denies any tobacco usage or history of. ROS: 12:35 Constitutional: Negative for fever, chills, and weight loss, kb 12:35 MS/extremity: Positive for injury or acute deformity, pain, swelling, tenderness, of the dorsum of right foot, 12:35 All other systems are negative, Exam: 12:35 Constitutional: This is a well developed, well nourished patient who is awake, alert, kb and in no acute distress. Head/Face: Normocephalic, atraumatic. ENT: Moist Mucous membranes Cardiovascular: Regular rate Respiratory: Respirations even and unlabored. No increased work of breathing. Talking in full sentences Skin: Warm, dry with normal turgor. Normal color. Neuro: Awake and alert, GCS 15, oriented to person, place, time, and situation. Moves all extremities. Normal gait. 12:35 Musculoskeletal/extremity: Extremities: grossly normal except: noted in the dorsum of right foot: pain, swelling, tenderness, ROM: intact in all extremities, Circulation is intact in all extremities. Sensation intact. Weight bearing: can bear weight with assistance only, Vital Signs: 11:32 BP 143 / 87; Pulse 94; Resp 18; Temp 97.5; Pulse Ox 96% on R/A; Weight 86.18 kg; Height ll1 5 ft. 10 in. ; Pain 12/27; 11:32 Body Mass Index 27.26 (86.18 kg, 177.8 cm) ll1 11:32 Pain Scale: Adult ll1 MDM: 11:24 Patient medically screened. kb 12:36 Differential diagnosis: fracture, sprain, contusion. Data reviewed: vital signs, nurses kb notes. Counseling: I had a detailed discussion with the patient and/or guardian regarding the historical points, exam findings, and any diagnostic results supporting the discharge/admit diagnosis, radiology results, the need for outpatient follow up, a orthopedic surgeon, to return to the emergency department if symptoms worsen or persist or if there are any questions or concerns that arise at home. 12/25 11:35 Order name: Foot Right 3 View XRAY; Complete Time: 12:05 kb 12/25 11:35 Order name: Ice pack; Complete Time: 12:29 kb 12/25 12:28 Order name: Short Leg Splint; Complete Time: 13:09 kb 12/25 12:28 Order name: Crutches; Complete Time: 13:09 kb Administered Medications: 12:29 Drug: Ibuprofen PO 800 mg PO once Route: PO; ph 12:30 Drug: [place] PO 10 mg-325 mg 1 tabs PO once Route: PO; ph Disposition: 18:06 Co-signature as Attending Physician, Alexandro Mancilla MD I reviewed the patient's care rn provided by the Advanced Practice Provider and agree with the diagnosis and treatment plan. Disposition Summary: 12/25/22 12:39 Discharge Ordered Notes: Location: Home kb Condition: Stable kb Diagnosis - Sprain of foot kb - Nondisplaced fracture of second metatarsal bone, right foot, initial encounter for kb closed fracture Followup: kb - With: Emergency Department - When: As needed - Reason: Worsening of condition Followup: kb - With: Private Physician - When: 2 - 3 days - Reason: Recheck today's complaints, Continuance of care, Re-evaluation by your physician Discharge Instructions: - Discharge Summary Sheet kb - Foot Sprain kb - Metatarsal Fracture kb Forms: - Medication Reconciliation Form kb - Thank You Letter kb - Antibiotic Education kb - Prescription Opioid Use kb - Patient Portal Instructions kb - Leadership Thank You Letter kb Prescriptions: - Tramadol 50 mg Oral Tablet - take 1 tablet ORAL route every 8 hours as needed; 12 tablet; Refills: 0, kb Product Selection Permitted Signatures: Dispatcher [employer] EDMS Lida Carmona, NARINDER VALDIVIA-Alexandro Young MD MD rn Hall, Patricia, RN RN Socrates Brown RN RN [facility]
[2022-12-25 13:13] VITALS: BP 143/87; TEMP 97.5; O2SAT 96
== END 2022-12-25 13:09 | disposition home or self-care (01) ==
LOC: ER 11:19
PROC: 2W3LX1Z Immobilization of Right Lower Extremity using Splint (ICD-10-PCS; principal; 2022-12-25)
DX: S92.324A Nondisplaced fracture of second metatarsal bone, right foot, initial encounter for closed fracture (principal); Z88.5 Allergy status to narcotic agent; Z88.0 Allergy status to penicillin; Z95.818 Presence of other cardiac implants and grafts
CPT/HCPCS: 99283